=== PATIENT | female | born 1950 | race Caucasian/White ===

== ENCOUNTER 2021-01-28 05:54 | Emergency (ER) | payer MEDICARE, SELFPAY ==
[2021-01-28] VITALS (10 sets, daily range): BP systolic 122–168; BP diastolic 52–98; PULSE 63–80; RESP 12–24; TEMP 36.8; O2SAT 100
--- NOTE | ~2021-01-28 | CT_ITS ---
EXAMINATION: CT abdomen pelvis w con INDICATION: Abdominal pain and nausea TECHNIQUE: Computed tomographic images of the abdomen and pelvis were obtained after the administrati on of 100 cc of Omnipaque 350 intravenous contrast. The dose-length product (DLP) was 1383.15 mGy-cm. Automated exposure control and iterative reconstruction technique were employed. COMPARISON: 06/27/2018 FINDINGS: Minimal dependent atelectasis is present in the lung bases. The heart size is normal. The g allbladder is surgically absent. There is a small amount of pneumobilia in the left hepatic lobe. The liver is otherwise unremarkable. The spleen and adrenal glands are normal. There is fatty atrophy of the body and tail of the pancreas. There is mild atrophy of the kidneys. No pathologically enlarged abdominal or pelvic lymph nodes are identified. There is mildly dilated small bowel in the left upper quadrant without focal transition point. No free intraperitoneal gas is identified. A fat-containing umbilical hernia is noted. There is severe lumbar spondylosis at L5-S1. IMPRESSION: 1. Mildly dilated small bowel in the left upper quadrant without focal transition point, possible ile us. Reviewed, dictated and finalized at location A. [employer] IMPRESSION: 1. Mildly dilated small bowel in the left upper quadrant without focal transiti on point, possible ileus.
[2021-01-28] MEDS: ONDANSETRON INJ 4 MG/2 ML VIAL IV PUSH (07:15)
[2021-01-28] MEDS: SODIUM CHLORIDE 0.9% IV 1,000 ML 999 ML IV CONT (07:15)
[2021-01-28] MEDS: MORPHINE SULFATE (*CRX) 4 MG/ML INJ IV PUSH ×2 (07:15→08:57)
[2021-01-28 07:20] LABS: Add Urine Microscopic? YES; Appearance Urine Cloudy (Clear); Bacteria Urine Trace /hpf; Bilirubin Urine Negative (Negative); Blood Urine 1+ (Negative); Color Urine Yellow (Yellow); Glucose Urine UA Negative (Negative); Ketones Urine Trace mg/dL (Negative); Leukocyte Esterase Ur 3+ LEU/UL (Negative); Mucus Urine Rare /lpf; Nitrate Urine Negative (Negative); Protein Urine Negative (Negative); Specific Grav Ur 1.016 (1.001-1.035); Squamous Epithelial Cell Urine Many /hpf (Few); Urobilinogen Urine Negative mg/dL (<2.0); WBC Urine >75 /hpf
[2021-01-28 07:33] LABS: Basophils Absolute Auto 0.1 K/mm3 (0.0-0.1); Basophils Percent Auto 0.5 % (0.2-1.2); Eosinophils Absolute Auto 0.1 K/mm3 (0-0.3); Eosinophils Percent Auto 0.7 % (0-4.4); Hematocrit 33.5 % (37.0-47.0); Hemoglobin 10.1 g/dL (12.0-15.0); Immature Granulocyte Absolute 0.04 K/mm3 (0.00-0.031); Immature Granulocyte Percent A 0.4 % (0-0.5); Lymphocytes Absolute Auto 2.27 K/mm3 (0.9-3.2); Lymphocytes Percent Auto 20.5 % (18.3-44.2); Mean Corpuscular HGB Conc 30.1 g/dl (32-36); Mean Corpuscular Hemoglobin 22.5 pg (26-34); Mean Corpuscular Volume 74.6 fl (80-100); Mean Platelet Volume 8.7 fl (7.4-10.4); Monocytes Absolute Auto 0.9 K/mm3 (0.1-0.6); Monocytes Percent Auto 8.1 % (2.6-8.5); Neutrophils Absolute Auto 7.7 K/mm3 (1.3-6.7); Neutrophils Percent Auto 69.8 % (45.5-73.1); Platelet Count Result 395 k/mm3 (150-375); Red Blood Count 4.49 M/mm3 (4.2-5.4); Red Cell Distribution Width 16.8 % (11.5-14.5); White Blood Count 11.1 K/mm3 (4.5-10.0)
[2021-01-28 07:44] LABS: Alanine Aminotransferase 13 U/L (4-35); Albumin Level 4.3 g/dL (3.5-5.1); Alkaline Phosphatase 107 U/L (38-126); Anion Gap 8 mmol/L (8-16); Aspartate Amino Transferase 17 U/L (14-36); Bilirubin,Total 0.6 mg/dL (0.2-1.3); Blood Urea Nitrogen 24 mg/dL (7-17); Calcium 9.7 mg/dL (8.4-10.2); Carbon Dioxide 26 mmol/L (22-30); Chloride 103 mmol/L (98-107); Estimated CRCL calculation 55 ml/min; Estimated Glomerular Filt Rate > 60; Glucose 114 mg/dL (65-110); Lipase 95 U/L (23-300); Potassium 4.4 mmol/L (3.4-5.0); Sodium 137 mmol/L (137-145)
--- NOTE | 2021-01-28 08:49 | ED.NAVMDI ---
HPI - Nausea/Vomiting/Diarrhea General Chief complaint: Nausea/Vomiting/Diarrhea Stated complaint: n/v Time Seen by Provider: 01/28/21 06:52 Source: patient History of Present Illness HPI Narrative: Patient presents with nausea vomiting diarrhea and diffuse abdominal pain. Patient for symptoms started yesterday got progressively worse today so she came to the ER for evaluation. She denies any blood bowel melena in her emesis or stool. She reports diffuse abdominal pain that is achy, constant, no radiation, no clear aggravating or alleviating symptoms. Her primary concern as she has not been able to take her home pain medications or keep them down so her chronic pain is acting up. She denies fever or known sick contacts Related Data Home Medications Medication Instructions Recorded Confirmed bupropion HCl 300 mg 24 hr tablet, 300 mg PO QAM 01/03/19 12/13/20 extended release oxycodone-acetaminophen 10 mg-325 1 tablet PO Q6H PRN 05/07/19 12/13/20 mg tablet Allergies Allergy/AdvReac Type Severity Reaction Status Date / Time clarithromycin Allergy Mild upset Verified 01/28/21 05:59 stomach ibuprofen Allergy Mild stomach Verified 01/28/21 05:59 upset NSAIDS (Non-Steroidal Allergy Mild stomach Verified 01/28/21 05:59 Anti-Inflamma upset tramadol Allergy Mild stomach Verified 01/28/21 05:59 upset Review of Systems Review of Systems: CONSTITUTIONAL: Denies fever, chills, or sweats. EYES: Denies visual changes, redness, or discharge. ENT: Denies rhinorrhea, congestion, sore throat, or otalgia. CARDIOVASCULAR: Denies chest pain, palpitations, or edema. RESPIRATORY: Denies cough or dyspnea. GASTROINTESTINAL: Reports abdominal pain, nausea, vomiting, diarrhea GENITOURINARY: Denies dysuria or hematuria. SKIN: Denies rash or itching. MUSCULOSKELETAL: Denies back pain, joint pain, or myalgia. NEUROLOGIC: Denies headache, numbness, dizziness, or weakness. PSYCHIATRIC: Denies anxiety or depression. All systems reviewed & are unremarkable except as noted in HPI and below PMFSH Past Medical History Medical History Asthma Family History Family History Father Family history of malignant neoplasm Patient's father is Mother Family history of malignant neoplasm Patient's mother is Social History Social History Smoking status: Never smoker Second hand tobacco smoke exposure: No Alcohol intake: never Exam Narrative: GENERAL: Well-appearing, well-nourished, and in no acute distress. HEAD: Normocephalic, atraumatic. EYES: PERRLA and EOMI. ENT: Nares clear, no rhinorrhea or epistaxis. Mucous membranes moist. NECK: Supple. No masses. No JVD CHEST: Clear to auscultation. No respiratory distress. No wheezes rales or rhonchi HEART: Regular rate and rhythm. No murmur heard. Normal peripheral pulses. ABDOMEN: Mild tenderness in the upper abdomen soft, nondistended, normal active bowel sounds. EXTREMITIES: Normal range of motion. No edema. SKIN: Warm, dry, no rash. NEURO: No focal deficits. Alert and oriented x3. PSYCH: Normal mood and affect. Course Reevaluation(s) Reevaluation #1: Patient reports feeling improved results and work-up reviewed with patient. Patient feels she can manage her at home. With repeat abdominal exam reassuring trial of outpatient therapies as appropriate. Date: 01/28/21 Time: 09:01 Vital Signs Vital signs: Vital Signs Temperature 36.8 C 01/28/21 05:53 Pulse Rate 80 01/28/21 05:53 Respiratory Rate 18 01/28/21 05:53 Blood Pressure 150/75 H 01/28/21 05:53 Pulse Oximetry 100 01/28/21 05:53 Temperature 36.8 C 01/28/21 05:53 Pulse Rate 71 01/28/21 09:30 Respiratory Rate 16 01/28/21 09:30 Blood Pressure 149/76 H 01/28/21 09:30 Pulse Oximetry
--- NOTE | 2021-01-28 15:04 | ED.NAVMDI ---
HPI - Nausea/Vomiting/Diarrhea General Chief complaint: Nausea/Vomiting/Diarrhea Stated complaint: n/v Time Seen by Provider: 01/28/21 06:52 Source: patient History of Present Illness HPI Narrative: Patient presents with nausea vomiting diarrhea and diffuse abdominal pain. Related Data Home Medications Medication Instructions Recorded Confirmed bupropion HCl 300 mg 24 hr tablet, 300 mg PO QAM 01/03/19 12/13/20 extended release oxycodone-acetaminophen 10 mg-325 1 tablet PO Q6H PRN 05/07/19 12/13/20 mg tablet Allergies Allergy/AdvReac Type Severity Reaction Status Date / Time clarithromycin Allergy Mild upset Verified 01/28/21 05:59 stomach ibuprofen Allergy Mild stomach Verified 01/28/21 05:59 upset NSAIDS (Non-Steroidal Allergy Mild stomach Verified 01/28/21 05:59 Anti-Inflamma upset tramadol Allergy Mild stomach Verified 01/28/21 05:59 upset PMFSH Past Medical History Medical History (Updated 01/28/21 @ 09:03 by Daniel Cramer MD) Asthma Family History Family History Father Family history of malignant neoplasm Patient's father is Mother Family history of malignant neoplasm Patient's mother is Social History Social History Smoking status: Never smoker Second hand tobacco smoke exposure: No Alcohol intake: never Course Vital Signs Vital signs: Vital Signs Temperature 36.8 C 01/28/21 05:53 Pulse Rate 80 01/28/21 05:53 Respiratory Rate 18 01/28/21 05:53 Blood Pressure 150/75 H 01/28/21 05:53 Pulse Oximetry 100 01/28/21 05:53 Temperature 36.8 C 01/28/21 05:53 Pulse Rate 71 01/28/21 09:30 Respiratory Rate 16 01/28/21 09:30 Blood Pressure 149/76 H 01/28/21 09:30 Pulse Oximetry 100 01/28/21 09:30 MDM - Nausea/Vomiting/Diarrhea Lab Data Result diagrams: 01/28/21 07:27 01/28/21 07:27 Labs: Lab Results 01/28/21 01/28/21 01/28/21 Range/Units 06:58 07:27 07:27 WBC 11.1 H (4.5-10.0) K/mm3 RBC 4.49 (4.2-5.4) M/mm3 Hgb 10.1 L (12.0-15.0) g/dL Hct 33.5 L (37.0-47.0) % MCV 74.6 L (80-100) fl MCH 22.5 L (26-34) pg MCHC 30.1 L (32-36) g/dl RDW 16.8 H (11.5-14.5) % Plt Count 395 H (150-375) k/mm3 MPV 8.7 (7.4-10.4) fl Immature Gran % (Auto) 0.4 (0-0.5) % Neut % (Auto) 69.8 (45.5-73.1) % Lymph % (Auto) 20.5 (18.3-44.2) % Nye % (Auto) 8.1 (2.6-8.5) % Eos % (Auto) 0.7 (0-4.4) % Baso % (Auto) 0.5 (0.2-1.2) % Lymph # (Auto) 2.27 (0.9-3.2) K/mm3 [place]ye # (Auto) 0.9 H (0.1-0.6) K/mm3 Eos # (Auto) 0.1 (0-0.3) K/mm3 Baso # (Auto) 0.1 (0.0-0.1) K/mm3 Abs Immat Gran (auto) 0.04 H (0.00-0.031) K/mm3 Absolute Neuts (auto) 7.7 H (1.3-6.7) K/mm3 Absolute Nucleated RBC 0.0 (0.0-0.012) K/mm3 Nucleated RBC % 0.0 (0.0-0.2) % Sodium 137 (137-145) mmol/L Potassium 4.4 (3.4-5.0) mmol/L Chloride 103 (98-107) mmol/L Carbon Dioxide 26 (22-30) mmol/L Anion Gap 8 (8-16) mmol/L BUN 24 H (7-17) mg/dL Creatinine 0.90 (0.7-1.0) mg/dL Estim Creat Clear Calc 55 ml/min Estimated GFR > 60 (59 - ) Glucose 114 H (65-110) mg/dL Calcium 9.7 (8.4-10.2) mg/dL Total Bilirubin 0.6 (0.2-1.3) mg/dL AST 17 (14-36) U/L ALT 13 (4-35) U/L Alkaline Phosphatase 107 (38-126) U/L Total Protein 7.0 (6.3-8.2) g/dL Albumin 4.3 (3.5-5.1) g/dL Lipase 95 (23-300) U/L Urine Color Yellow (Yellow) Urine Appearance Cloudy H (Clear) Urine pH 6.0 (5.0-9.0) Ur Specific [place] 1.016 (1.001-1.035) Urine Protein Negative (Negative) mg/dL Urine Glucose (UA) Negative (Negative) mg/dL Urine Ketones Trace (Negative) mg/dL Ur Blood (Man) 1+ H (Negative) Urine Nitrate
== END 2021-01-28 09:30 | disposition home or self-care (01) ==
PROVIDERS: General Practice; Emergency Provider Emergency Medicine; PCP Physician Assistant
DX: N30.01 Acute cystitis with hematuria (principal); R10.84 Generalized abdominal pain; J45.909 Unspecified asthma, uncomplicated; R93.5 Abnormal findings on diagnostic imaging of other abdominal regions, including retroperitoneum
CPT/HCPCS: 36415; 74177; 80053; 81001; 83690; 85025; 87077; 87086; 87186; 96361; 96365; 96375; 96376; 99284; J0696; J2270; J2405; J7030; Q9967

== ENCOUNTER 2021-01-29 00:49 | Observation (INO) | payer MEDICARE, SELFPAY ==
[2021-01-29] VITALS (13 sets, daily range): BP systolic 108–169; BP diastolic 54–91; PULSE 62–94; RESP 14–20; TEMP 36.3–37.2; O2SAT 95–100; BMI 37.8
--- NOTE | ~2021-01-29 | XR_ITS ---
EXAMINATION: XR abdomen obstructive series DATE: 01/29/2021 10:35 INDICATION: Ileus TECHNIQUE: Upright and supine views of the abdomen were obtained. COMPARISON: CT from yesterday FINDINGS: There is mild gaseous distention of the stomach. Previously described dilated small bowel i n the left upper quadrant does not persist. No free intraperitoneal gas is identified. Cholecystectom y clips are noted. The visualized lung bases are clear. Contrast from yesterday's CT examination is n oted within the urinary bladder. There is mild osteoarthritis of the hips. IMPRESSION: 1. No persistent small bowel dilatation. Reviewed, dictated and finalized at location A. [employer]
[2021-01-29 01:22] LABS: Basophils Absolute Auto 0.1 K/mm3 (0.0-0.1); Basophils Percent Auto 0.4 % (0.2-1.2); Eosinophils Absolute Auto 0.1 K/mm3 (0-0.3); Eosinophils Percent Auto 0.9 % (0-4.4); Hematocrit 31.7 % (37.0-47.0); Hemoglobin 9.8 g/dL (12.0-15.0); Immature Granulocyte Absolute 0.05 K/mm3 (0.00-0.031); Immature Granulocyte Percent A 0.4 % (0-0.5); Lymphocytes Absolute Auto 2.39 K/mm3 (0.9-3.2); Mean Corpuscular HGB Conc 30.9 g/dl (32-36); Mean Corpuscular Hemoglobin 23.1 pg (26-34); Mean Corpuscular Volume 74.6 fl (80-100); Mean Platelet Volume 8.6 fl (7.4-10.4); Monocytes Absolute Auto 1.1 K/mm3 (0.1-0.6); Monocytes Percent Auto 9.8 % (2.6-8.5); Neutrophils Absolute Auto 7.7 K/mm3 (1.3-6.7); Neutrophils Percent Auto 67.5 % (45.5-73.1); Platelet Count Result 378 k/mm3 (150-375); Red Blood Count 4.25 M/mm3 (4.2-5.4); Red Cell Distribution Width 16.7 % (11.5-14.5); White Blood Count 11.4 K/mm3 (4.5-10.0)
[2021-01-29 01:34] LABS: Alanine Aminotransferase 13 U/L (4-35); Alkaline Phosphatase 86 U/L (38-126); Anion Gap 4 mmol/L (8-16); Aspartate Amino Transferase 20 U/L (14-36); Bilirubin,Total 0.5 mg/dL (0.2-1.3); Blood Urea Nitrogen 21 mg/dL (7-17); Calcium 9.4 mg/dL (8.4-10.2); Carbon Dioxide 25 mmol/L (22-30); Chloride 101 mmol/L (98-107); Estimated CRCL calculation 63 ml/min; Estimated Glomerular Filt Rate > 60; Glucose 114 mg/dL (65-110); Lipase 111 U/L (23-300); Potassium 4.5 mmol/L (3.4-5.0); Sodium 130 mmol/L (137-145)
[2021-01-29] MEDS: SODIUM CHLORIDE 0.9% IV 1,000 ML 999 ML IV CONT (01:59)
[2021-01-29] MEDS: HYDROmorphone HCL INJ (*CRX) 1 MG/ML SYR IV PUSH ×5 (02:00→20:14)
--- NOTE | 2021-01-29 02:02 | ED.NAVMDI ---
HPI - Nausea/Vomiting/Diarrhea General Chief complaint: Nausea/Vomiting/Diarrhea Stated complaint: n/v/d, abd cramping x 2 days here last night Time Seen by Provider: 01/29/21 00:56 Source: patient, RN notes reviewed and old records reviewed Mode of arrival: EMS Limitations: no limitations History of Present Illness HPI Narrative: This is a 70 year old female with history chronic pain syndrome, hypertension, hyperlipidemia who present for evaluation of nausea, vomiting and diarrhea. She states her symptoms started 2 days ago. She was evaluated in [place] ER about 16 hour ago with labs and CT abdomen pelvis. She was discharged with antibiotics for UTI and zofran prescription. She was only able to get 1 dose of zofran due to financial issues and she took that in the afternoon. She last had an episode of emesis around 10 pm and she also had dose of diarrhea. She reports bilious emesis and nonbloody watery diarrhea. She is also complaining of diffuse abdominal pain. She takes high dose of narcotics chronically and she has been unable to keep medications down in 2 days. Related Data Home Medications Medication Instructions Recorded Confirmed bupropion HCl 300 mg 24 hr tablet, 300 mg PO QAM 01/03/19 01/29/21 extended release oxycodone-acetaminophen 10 mg-325 1 tablet PO Q6H PRN 05/07/19 01/29/21 mg tablet Allergies Allergy/AdvReac Type Severity Reaction Status Date / Time clarithromycin Allergy Mild upset Verified 01/29/21 01:03 stomach ibuprofen Allergy Mild stomach Verified 01/29/21 01:03 upset NSAIDS (Non-Steroidal Allergy Mild stomach Verified 01/29/21 01:03 Anti-Inflamma upset tramadol Allergy Mild stomach Verified 01/29/21 01:03 upset Review of Systems Review of Systems: All systems reviewed & are unremarkable except as noted in HPI and below PMFSH Past Medical History Medical History (Updated 01/29/21 @ 08:00 by Kary Seo MD) Asthma Chronic pain Hyperlipidemia Hypertension Surgical History Surgical History History of cholecystectomy History of tonsillectomy Family History Family History Father Family history of malignant neoplasm Patient's father is Mother Family history of malignant neoplasm Patient's mother is Social History Social History Smoking status: Never smoker Second hand tobacco smoke exposure: No Alcohol intake: never Substance use: never Spiritual care concerns: No Exam Const: General: no acute distress Orientation/consciousness: patient oriented x3 Eyes: EOM: EOMs intact bilaterally Resp: Effort & Inspection: normal respiratory effort and no retractions Auscultation: clear to auscultation bilaterally Cardio: Rate: regular rate Rhythm: regular rhythm Heart sounds: no murmurs GI: GI Palp: Yes Soft to palpation, No Tenderness to palpation present (GI) and No Guarding due to palpation present (GI) Auscultation: normal bowel sounds Skin: General skin exam: normal color Rashes: no rashes Neuro: General: patient oriented x3, moves all extremities and CN's II-XI intact bilaterally Psych: Mental Status: mental status grossly normal Affect: normal affect Course Reevaluation(s) Reevaluation #1: Patient was given zofran, dilaudid and IVF. She is still continuing to have nausea and pain. PAtient's labs are stable and CT from yesterday showed only possible ileus. I discussed with patient that she will be admitted for observation due to intractable nausea and pain. Date: 01/29/21 Time: 03:30 Consultations Consultation #1: I Discussed case with Dr. Gonzalez. She accepts patient and thinks patient's symptoms likely due to UTI. She received rocephin 8 am yesterday so I will order for this morning. Date: 01/29/21 Time: 04:00 Vi
[2021-01-29] MEDS: PROMETHAZINE HCL 25 MG/ML AMPUL 12.5 MG IV PUSH (02:48)
--- NOTE | 2021-01-29 03:39 | PC.NURSE ---
Pt reports improvement in N/V since medication
--- NOTE | 2021-01-29 03:59 | PC.NURSE ---
Pt requesting pain medication. EDP notified.
--- NOTE | 2021-01-29 05:00 | PC.NURSE ---
This RN entered room to give ordered pain medication. Pt states that if she could stay home and take Tylenol, she would have. Pt states she doesn't understand why this RN cannot not give her something stronger. Reports we are discriminating against her because she was just here yesterday. This RN educated pt on potential adverse effects of narcotic pain medications and reasons doses are limited to every few hours. This RN also educated pt on the effectiveness of IV Tylenol in treating pain. Pt continues to express dissatisfaction, but states she will try the IV Tylenol.
--- NOTE | 2021-01-29 05:19 | PC.NURSE ---
Attempted to give report to 3rd Med/Surg at this time. Was informed that receiving RN was in pt room and will call back when available.
--- NOTE | 2021-01-29 05:24 | PM.IMHP ---
H&P: HPI History of Present Illness Date/Time: 01/29/21 05:24 Chief Complaint: Nausea and vomiting Narrative: This is a 70-year-old female with past medical history significant for asthma, chronic pain, asthma, dyslipidemia, hypertension, morbid obesity. Patient presents to the emergency room due to nausea, vomiting and diarrhea. She had been to the emergency room the day before and workup was significant for urinary tract infection she was discharged home with antibiotics however patient after taking her antibiotic had nausea and vomiting intractable with diarrhea as well as abdominal pain and decided to come back to the emergency room. Patient has been having chills ,fevers, she denies any dysuria, she denies any hematuria, denies any shortness of breath, cough or sputum production, no leg swelling, no PND, orthopnea, no syncope or near syncope. CT of abdomen and pelvis was significant for dilated bowel loops possible ileus. Decision has been made to admit the patient for further assessment evaluation and treatment. Review of Systems Review of Systems: Nausea, vomiting,abdominal pain, diarrhea. Constitutional: Constitutional: Reports chills, Reports fatigue, Reports fever(s), Reports malaise, Reports poor appetite and Reports weakness Eyes: Eyes: Denies change in vision ENT: Denies dysphagia, Denies nasal congestion, Denies nasal discharge, Denies nasal obstruction and Denies odynophagia Cardiovascular: Cardiovascular: Denies edema, Denies irregular heart rhythm, Denies claudication, Denies lightheadedness, Denies radiating jaw, neck or arm pain, Denies palpitations, Denies dyspnea, Denies dyspnea on exertion and Denies orthopnea Respiratory: Respiratory: Denies cough and Denies dyspnea Gastrointestinal: Gastrointestinal: Reports abdominal pain, Denies dyspepsia, Denies heartburn, Reports diarrhea, Reports nausea and Reports vomiting Genitourinary: Genitourinary: Denies dysuria and Denies flank pain Musculoskeletal: Musculoskeletal: Reports back pain, Denies arthralgias and Denies joint swelling Integumentary/Breasts: Skin/Breast: Denies rash Neurologic: Denies focal weakness and Denies Sensory deficit (Neuro) Psychiatric: Psychiatric: Reports no additional psychiatric complaints and Reports as per HPI Endocrine: Endocrine: Reports no additional endocrine complaints and Reports as per HPI Hematologic/Lymphatic: Hematologic/Lymphatic: Reports no additional hematologic/lymphatic complaints and Reports as per HPI Allergic/Immunologic: Allergic/Immunologic: Reports no additional allergic/immunologic complaints and Reports as per [facility] Past Medical History Medical History (Updated 01/29/21 @ 05:39 by Garcia Gonzalez MD) Asthma Chronic pain Hyperlipidemia Hypertension Surgical History Surgical History History of cholecystectomy History of tonsillectomy Family History Family History Father Family history of malignant neoplasm Patient's father is Mother Family history of malignant neoplasm Patient's mother is Social History Social History Smoking status: Never smoker Second hand tobacco smoke exposure: No Alcohol intake: never Meds Home Medications and Allergies Home Medications Medication Instructions Recorded Confirmed Type bupropion HCl 300 mg 24 hr tablet, 300 mg PO QAM 01/03/19 12/13/20 History extended release oxycodone-acetaminophen 10 mg-325 1 tablet PO Q6H PRN 05/07/19 12/13/20 History mg tablet hydroxyzine HCl 50 mg tablet See Rx Instructions .ROUTE 02/24/20 12/13/20 Rx .COMPLEX #180 tablet pramipexole 1 mg tablet See Rx Instructions .ROUTE 08/04/20 12/13/20 Rx .COMPLEX #270 tablet pantoprazole 40 mg tablet,delayed 40 mg PO QAM #90 tablet 08/09/20 12/13/20 Rx releas
[2021-01-29] MEDS: SODIUM CHLORIDE 0.9% IV 1,000 ML 125 ML IV CONT ×2 (06:11→18:36)
[2021-01-29] MEDS: ONDANSETRON INJ 4 MG/2 ML VIAL IV PUSH ×4 (06:16→20:14)
--- NOTE | 2021-01-29 06:27 | ADMGEN ---
This patient, Claudette Gomez, was admitted to [facility] Surg Room 317-01. Patient/family oriented to hospital policies and general routines including ID bracelet, bed and alarms, visiting hours, pain management, procedures, bathroom and other care routines, personal items, smoking policy, room service/diet, and visiting hours. Information on how to activate the Rapid Response Team has been discussed. Patient/Family are encouraged to report perceived risks to care and to ask questions if they do not understand what they are told or what they should do.
--- NOTE | 2021-01-29 08:27 | PM.IMPN ---
Progress Note: A&P Assessment and Plan (1) Ileus: Code(s): K56.7 - Ileus, unspecified Status: Acute Assessment and Plan: Noted on CT yesterday -patient has had improvement and has not had any vomiting. She has been passing gas but has not had a bowel movement (previously had diarrhea before admission) -No sick contacts -will obtain an obstructive series x-ray this morning and depending on the x-ray may consider starting a diet -patient is still in 7/10 pain but has no signs of acute abdomen (2) Urinary tract infection: Code(s): N39.0 - Urinary tract infection, site not specified Status: Acute Assessment and Plan: UA suspicious for UTI -continue ceftriaxone and await culture results (3) Intractable nausea and vomiting: Code(s): R11.2 - Nausea with vomiting, unspecified Status: Acute Assessment and Plan: Resolved since being here -secondary to ileus (4) Morbid obesity with BMI of 40.0-44.9, adult: Code(s): E66.01 - Morbid (severe) obesity due to excess calories; Z68.41 - Body mass index [BMI] 40.0-44.9, adult Status: Acute Assessment and Plan: Lifestyle and diet modifications (5) Chronic knee pain: Code(s): M25.569 - Pain in unspecified knee; G89.29 - Other chronic pain Status: Acute Assessment and Plan: She takes oxycodone for this at home -order PT and OT (6) Asthma: Qualifiers: Asthma severity: mild Asthma persistence: intermittent Asthma complication type: uncomplicated Qualified Code(s): J45.20 - Mild intermittent asthma, uncomplicated Code(s): J45.909 - Unspecified asthma, uncomplicated Status: Acute Assessment and Plan: Chronic and stable -no wheezing on exam -continue p.r.n. albuterol and daily Advair (7) Hyponatremia: Code(s): E87.1 - Hypo-osmolality and hyponatremia Status: Acute Assessment and Plan: Down to 130 today, likely due to pain and IV fluids -patient states she has had a history of this in the past. She was 137 on admission -in the past looks like she ranges from 126-135 -will slow fluids while the patient is NPO and monitor with daily labs -home hydrochlorothiazide has been held (8) Hypertension: Qualifiers: Hypertension type: essential hypertension Qualified Code(s): I10 - Essential (primary) hypertension Code(s): I10 - Essential (primary) hypertension Status: Acute Assessment and Plan: Last blood pressure 134/67 -continue IV hydralazine for systolic greater than 170 while NPO -plan to restart home medications as soon as she can tolerate a diet Time Spent With Patient Time with patient: 25 - 35 minutes Subjective Date/time seen: 01/29/21 08:27 Interval history: Pt is a 70-year-old female here for ileus and UTI. Patient was seen today and states she feels better. She continues to have pain that is mostly in her left lower quadrant but has not had any vomiting or diarrhea since admission. She has not eaten anything yet and is passing gas. She says she has a history of cholecystectomy in 2002 and a but no other abdominal surgeries. She thinks she had this in her 30s at some point but isn't sure. She has not been around anybody who has been sick. She has not slept for the past 2 days because she was throwing up but is feeling better and did sleep a little bit this morning. She is overall feeling better. No chest pain or shortness of breath. She rates her pain a 7/10 at this time but would like to try a diet. She states she takes oxycodone routinely at home for knee and back pain. No dysuria. Review of Systems Review of Systems: All systems reviewed & are unremarkable except as noted in HPI and below Exam Narrative: General: Overweight patient resting comfortably in bed in no acute distress HEENT: normocephalic Neck: supple Neuro: Alert and oriented x4
[2021-01-29] MEDS: PANTOPRAZOLE SODIUM IV 40 MG VIAL IV PUSH (08:37)
[2021-01-29] MEDS: ENOXAPARIN 40 MG/0.4 ML SYRINGE SUB-Q (08:38)
--- NOTE | 2021-01-29 22:47 | PC.NURSE ---
Patient is giving this nurse an extremely hard time this evening. Patient was medicated with Dilaudid and stated immediately after the medication was administered that she did not feel relief like she did the other times the medication was given. Patient then asked to speak with the charge nurse stating this nurse did not administer her pain medication. Patient then requested tylenol and this nurse went in and explained that medication was not due for 2 more hours. Patient stated this was not correct because she always got pain medication in between her doses. Patient stated to the charge nurse that she needed medication to help her sleep and this nurse called and got an order for one time dose of Ambien. Care will be transferred to charge nurse Татьяна.
[2021-01-29] MEDS: ZOLPIDEM TARTRATE (*CRX) 5 MG TABLET PO (23:31)
[2021-01-30] MEDS: ONDANSETRON INJ 4 MG/2 ML VIAL IV PUSH ×3 (00:08→08:33)
[2021-01-30] MEDS: HYDROmorphone HCL INJ (*CRX) 1 MG/ML SYR IV PUSH ×3 (00:09→08:33)
[2021-01-30] MEDS: SODIUM CHLORIDE 0.9% IV 1,000 ML 125 ML IV CONT (02:06)
[2021-01-30 05:26] VITALS: BP 143/53; PULSE 61; RESP 18; TEMP 36.4; O2SAT 92
[2021-01-30 06:46] LABS: Basophils Absolute Auto 0.1 K/mm3 (0.0-0.1); Basophils Percent Auto 0.9 % (0.2-1.2); Eosinophils Absolute Auto 0.4 K/mm3 (0-0.3); Eosinophils Percent Auto 4.5 % (0-4.4); Hematocrit 31.1 % (37.0-47.0); Hemoglobin 9.3 g/dL (12.0-15.0); Immature Granulocyte Absolute 0.04 K/mm3 (0.00-0.031); Immature Granulocyte Percent A 0.4 % (0-0.5); Lymphocytes Absolute Auto 2.49 K/mm3 (0.9-3.2); Lymphocytes Percent Auto 27.5 % (18.3-44.2); Mean Corpuscular HGB Conc 29.9 g/dl (32-36); Mean Corpuscular Hemoglobin 22.4 pg (26-34); Mean Corpuscular Volume 74.8 fl (80-100); Mean Platelet Volume 8.9 fl (7.4-10.4); Monocytes Absolute Auto 0.9 K/mm3 (0.1-0.6); Monocytes Percent Auto 9.9 % (2.6-8.5); Neutrophils Absolute Auto 5.1 K/mm3 (1.3-6.7); Neutrophils Percent Auto 56.8 % (45.5-73.1); Platelet Count Result 362 k/mm3 (150-375); Red Blood Count 4.16 M/mm3 (4.2-5.4); Red Cell Distribution Width 16.5 % (11.5-14.5); White Blood Count 9.1 K/mm3 (4.5-10.0)
[2021-01-30 06:58] LABS: Alanine Aminotransferase 11 U/L (4-35); Albumin Level 3.6 g/dL (3.5-5.1); Alkaline Phosphatase 74 U/L (38-126); Anion Gap 5 mmol/L (8-16); Aspartate Amino Transferase 14 U/L (14-36); Bilirubin,Total 0.3 mg/dL (0.2-1.3); Blood Urea Nitrogen 16 mg/dL (7-17); Carbon Dioxide 23 mmol/L (22-30); Chloride 104 mmol/L (98-107); Estimated CRCL calculation 64 ml/min; Estimated Glomerular Filt Rate > 60; Glucose 98 mg/dL (65-110); Magnesium 1.7 mg/dL (1.6-2.3); Sodium 132 mmol/L (137-145)
[2021-01-30 08:17] LABS: Ovalocytes 1+ (NORMAL); Platelet Estimate Adequate (Adequate); Poikilocytosis 1+ (NORMAL)
[2021-01-30] MEDS: FLUTICASONE/SALMETEROL 115-21 MCG INHALER 1 PUFF 2 PUFF INHALATION (09:08)
[2021-01-30 09:09] VITALS: O2SAT 98
[2021-01-30] MEDS: ENOXAPARIN 40 MG/0.4 ML SYRINGE SUB-Q (09:57)
[2021-01-30] MEDS: buPROPion HCL XL (24 HR) 150 MG TABCR 300 MG PO (09:57)
[2021-01-30] MEDS: hydroCHLOROthiazide 12.5 MG CAPSULE PO (09:58)
[2021-01-30] MEDS: PANTOPRAZOLE SODIUM IV 40 MG VIAL IV PUSH (09:58)
[2021-01-30] MEDS: LOSARTAN POTASSIUM 100 MG TABLET PO (09:58)
[2021-01-30] MEDS: oxyCODONE HCL (*CRX) 5 MG TAB IR PO (12:15)
[2021-01-30] MEDS: oxyCODONE/ACETAMINOPHEN (*CRX) 5-325 MG TABLET 1 TABLET PO (12:17)
[2021-01-30] MEDS: CEPHALEXIN 500 MG CAPSULE PO (12:36)
[2021-01-30] MEDS: SACCHAROMYCES BOULARDII 250 MG CAPSULE PO (12:37)
[2021-01-30 14:00] VITALS: BP 113/55; PULSE 74; RESP 20; TEMP 37.2; O2SAT 100
--- NOTE | 2021-01-30 14:14 | PM.DS ---
DS: Admitting Diagnosis Discharge Date 01/30/21 Admitting Diagnosis ileus and UTI DS: Discharge Diagnosis Discharge Diagnosis (1) Ileus: Code(s): K56.7 - Ileus, unspecified Status: Acute Assessment and Plan: Noted on CT 01/28/21 -patient has had improvement and has not had any vomiting and has had BMs -she tolerated her diet and stable for discharge -No sick contacts (2) Urinary tract infection: Code(s): N39.0 - Urinary tract infection, site not specified Status: Acute Assessment and Plan: confirmed UTI -patient states she still has her Keflex at home that was given by the ER and she is going to finish that (3) Intractable nausea and vomiting: Code(s): R11.2 - Nausea with vomiting, unspecified Status: Acute Assessment and Plan: Resolved since being here -secondary to ileus (4) Morbid obesity with BMI of 40.0-44.9, adult: Code(s): E66.01 - Morbid (severe) obesity due to excess calories; Z68.41 - Body mass index [BMI] 40.0-44.9, adult Status: Acute Assessment and Plan: Lifestyle and diet modifications (5) Chronic knee pain: Code(s): M25.569 - Pain in unspecified knee; G89.29 - Other chronic pain Status: Acute Assessment and Plan: She takes oxycodone and morphine for this at home (6) Asthma: Qualifiers: Asthma severity: mild Asthma persistence: intermittent Asthma complication type: uncomplicated Qualified Code(s): J45.20 - Mild intermittent asthma, uncomplicated Code(s): J45.909 - Unspecified asthma, uncomplicated Status: Acute Assessment and Plan: Chronic and stable -no wheezing on exam -continue p.r.n. albuterol and daily Advair (7) Hyponatremia: Code(s): E87.1 - Hypo-osmolality and hyponatremia Status: Acute Assessment and Plan: Improved to 132 today, likely due to IV fluids and pain. -patient states she has had a history of this in the past. She was 137 on admission -in the past looks like she ranges from 126-135. Follow-up with primary care physician for routine monitoring. (8) Hypertension: Qualifiers: Hypertension type: essential hypertension Qualified Code(s): I10 - Essential (primary) hypertension Code(s): I10 - Essential (primary) hypertension Status: Acute Assessment and Plan: Last blood pressure 113/55. Continue home regimen DS: Summary Hospital Course Hospital Course: Date of service 01/30/2021 Patient is a 70-year-old female who presented emergency room for nausea, vomiting and diarrhea. She had previously been to the ER and diagnosed with a UTI and went home. She was unable to keep down her antibiotics because she continued to throw up so she came back to emergency room. Vitals in the ER were temperature 98.9?, pulse 84, respiratory rate 20, blood pressure 108/57, pulse ox 100 on room air. Initial white blood cell count 11.4, hemoglobin 9.8, hematocrit 31.7, platelets 378. UA suspicious for UTI. Abdominal pelvis CT showed mildly dilated small bowel without focal transition point, possible ileus. Since patient was unable to take her home chronic pain medications and antibiotics, she was admitted to the hospitalist service and observed. She was given IV fluids and IV pain medication and improved on this regimen. We advanced her diet as tolerated and she was tolerating a regular diet at discharge. She still had complaints of chronic pain but her abdominal pain had improved. Her urine culture grew E coli and she still has antibiotics from previously and is going to finish those. She was feeling much better day of discharge and ready to go. She was educated about the worrisome signs and symptoms come back to emergency room for and was discharged in stable condition. She is to follow up with her primary care physician 1 week after this stay. Status at Discharge Overall status at d
== END 2021-01-30 16:00 | disposition home or self-care (01) ==
LOC: ANHED 01:01 → ANH3MEDSUR 05:01
PROVIDERS: Admitting Provider Internal Medicine; Emergency Provider General Practice; PCP Physician Assistant; Visit Provider Internal Medicine
DX: K56.7 Ileus, unspecified (principal); N39.0 Urinary tract infection, site not specified; B96.20 Unspecified Escherichia coli [E. coli] as the cause of diseases classified elsewhere; E87.1 Hypo-osmolality and hyponatremia; E66.01 Morbid (severe) obesity due to excess calories; E78.5 Hyperlipidemia, unspecified; I10 Essential (primary) hypertension; J45.20 Mild intermittent asthma, uncomplicated; Z68.37 Body mass index [BMI] 37.0-37.9, adult
CPT/HCPCS: 36415; 74019; 80053; 83690; 83735; 85025; 94640; 96361; 96365; 96367; 96372; 96375; 96376; 97161; 97165; 99285; A9270; C9113; G0378; J0131; J0696; J1170; J1650; J2405; J2550; J7030

== ENCOUNTER 2021-02-25 07:50 | Emergency (ER) | payer MEDICARE, SELFPAY ==
--- NOTE | ~2021-02-25 | CT_ITS ---
EXAMINATION: CT abdomen pelvis w con DATE: 02/25/2021 09:29 INDICATION: Abdominal pain TECHNIQUE: Computed tomography (CT) of the abdomen and pelvis was performed with 100 cc Omnipaque 350 intravenous contrast. Automated exposure control and iterative reconstruction technique were employe d. Exam dose: 1505.13 mGy-cm total exam DLP. COMPARISON: 01/29/2021 obstructive series 01/28/2021 CT abdomen pelvis FINDINGS: The lung bases are clear of infiltrate or consolidation. There is cardiomegaly. No pericard ial or pleural effusion. Status post cholecystectomy. There is minimal pneumobilia. No hepatic, splenic or pancreatic space-oc cupying mass lesion is evident. There is pancreatic atrophy. A pancreatic tail small calcification ma y indicate mild chronic pancreatitis. Normal morphology of the adrenal glands. No renal mass lesion or urinary tract calculus or hydroureteronephrosis. The urinary bladder and uter us and adnexal areas are unremarkable. Normal caliber of the abdominal aorta. No intraperitoneal or retroperitoneal or pelvic mass lesion or adenopathy or ascites is detected. No bowel obstruction, bowel wall thickening, pneumatosis or intraperitoneal free air. Approximately 4 x 4.8 cm fat-containing umbilical hernia. 1.5 cm osteosclerotic lesion at the root of the left acetabulum, possibly a bone island. No suspiciou s osteolytic or osteoblastic lesions are noted otherwise. Degenerative changes of the thoracic and leonor mbar spine. IMPRESSION: Status post cholecystectomy, minimal pneumobilia Reviewed, dictated and finalized at [facility]. Reviewed, dictated and finalized at [facility]. [employer] MAN
[2021-02-25 07:51] VITALS: BP 153/78; PULSE 76; RESP 16; TEMP 36.8; O2SAT 100
[2021-02-25] MEDS: SODIUM CHLORIDE 0.9% IV 1,000 ML 999 ML IV CONT (08:51)
[2021-02-25 08:56] LABS: Basophils Absolute Auto 0.1 K/mm3 (0.0-0.1); Basophils Percent Auto 0.8 % (0.2-1.2); Eosinophils Absolute Auto 0.2 K/mm3 (0-0.3); Eosinophils Percent Auto 2.9 % (0-4.4); Hematocrit 31.2 % (37.0-47.0); Hemoglobin 9.4 g/dL (12.0-15.0); Immature Granulocyte Absolute 0.04 K/mm3 (0.00-0.031); Immature Granulocyte Percent A 0.5 % (0-0.5); Lymphocytes Percent Auto 23.8 % (18.3-44.2); Mean Corpuscular HGB Conc 30.1 g/dl (32-36); Mean Corpuscular Hemoglobin 23.2 pg (26-34); Mean Corpuscular Volume 76.8 fl (80-100); Mean Platelet Volume 8.8 fl (7.4-10.4); Monocytes Absolute Auto 0.7 K/mm3 (0.1-0.6); Monocytes Percent Auto 8.4 % (2.6-8.5); Neutrophils Absolute Auto 5.1 K/mm3 (1.3-6.7); Neutrophils Percent Auto 63.6 % (45.5-73.1); Platelet Count Result 307 k/mm3 (150-375); Red Blood Count 4.06 M/mm3 (4.2-5.4); Red Cell Distribution Width 17.3 % (11.5-14.5)
[2021-02-25 08:56] LABS: Add Urine Microscopic? YES; Appearance Urine Clear (Clear); Bilirubin Urine Negative (Negative); Blood Urine 2+ (Negative); Color Urine Yellow (Yellow); Glucose Urine UA Negative (Negative); Ketones Urine Negative (Negative); Leukocyte Esterase Ur Trace LEU/UL (Negative); Mucus Urine Rare /lpf; Nitrate Urine Negative (Negative); Protein Urine Negative (Negative); Specific Grav Ur 1.015 (1.001-1.035); Squamous Epithelial Cell Urine Few /hpf (Few); Urobilinogen Urine Negative mg/dL (<2.0); WBC Urine 0-3 /hpf
--- NOTE | 2021-02-25 09:04 | ED.GENADULT ---
HPI - General Adult General Chief complaint: Nausea/Vomiting/Diarrhea Stated complaint: NAUSEA/VOMITING Time Seen by Provider: 02/25/21 08:25 Source: patient and RN notes reviewed Limitations: no limitations History of Present Illness HPI narrative: Patient presents with headache, nausea, vomiting and right abdominal pain started last night. Patient denies any fever, chills, diarrhea, constipation, urinary symptoms. Patient is vaccinated for COVID-19, did not have the booster dose yet. Patient does not smoke or drink or uses drugs, no blood thinner, no aspirin history of hypertension and cholecystectomy patient reports that usually when she gets headaches, gets nausea and vomiting. Patient reported that her headache is not worse than before, and declined CAT scan of the head at this time. Patient reported that her headache is similar to the previous ones. Related Data Home Medications Medication Instructions Recorded Confirmed bupropion HCl 300 mg 24 hr tablet, 300 mg PO QAM 01/03/19 01/29/21 extended release oxycodone-acetaminophen 10 mg-325 1 tablet PO Q6H PRN 05/07/19 01/29/21 mg tablet cephalexin 500 mg PO BID 01/30/21 01/30/21 morphine 30 mg PO BID 01/30/21 01/30/21 Allergies Allergy/AdvReac Type Severity Reaction Status Date / Time clarithromycin Allergy Mild upset Verified 01/29/21 01:03 stomach ibuprofen Allergy Mild stomach Verified 01/29/21 01:03 upset NSAIDS (Non-Steroidal Allergy Mild stomach Verified 01/29/21 01:03 Anti-Inflamma upset tramadol Allergy Mild stomach Verified 01/29/21 01:03 upset Review of Systems Review of Systems: CONSTITUTIONAL: Denies fever, chills, or sweats. EYES: Denies visual changes, redness, or discharge. ENT: Denies rhinorrhea, congestion, sore throat, or otalgia. CARDIOVASCULAR: Denies chest pain, palpitations, or edema. RESPIRATORY: Denies cough or dyspnea. GASTROINTESTINAL: Denies abdominal pain, nausea, vomiting, or diarrhea. GENITOURINARY: Denies dysuria or hematuria. SKIN: Denies rash or itching. MUSCULOSKELETAL: Denies back pain, joint pain, or myalgia. NEUROLOGIC: Denies headache, numbness, or weakness. PSYCHIATRIC: Denies anxiety or depression. [facility] Past Medical History Medical History Asthma Chronic pain Hyperlipidemia Hypertension Surgical History Surgical History History of cholecystectomy History of tonsillectomy Family History Family History Father Family history of malignant neoplasm Patient's father is Mother Family history of malignant neoplasm Patient's mother is Social History Social History Smoking status: Never smoker Second hand tobacco smoke exposure: No Alcohol intake: never Substance use: never Spiritual care concerns: No Exam Narrative: General appearance: Well-developed, well-nourished Skin: Normal color Head: Normocephalic, nontraumatic Eyes: Clear conjunctiva ENT: Oropharynx normal, ears normal, nose normal Neck: Supple, nontender Chest and respiratory: Airway patent, no respiratory distress, no accessory muscle use Heart: Regular rate/rhythm Abdomen: Soft, diffuse tenderness mainly right abdomen, no guarding or rebound,, no organomegaly, quiet bowel sounds Vascular: Normal peripheral pulses, normal capillary refill. 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
[2021-02-25 09:05] LABS: Alanine Aminotransferase 11 U/L (4-35); Albumin Level 3.8 g/dL (3.5-5.1); Alkaline Phosphatase 83 U/L (38-126); Anion Gap 5 mmol/L (8-16); Aspartate Amino Transferase 20 U/L (14-36); Bilirubin,Total 0.4 mg/dL (0.2-1.3); Blood Urea Nitrogen 13 mg/dL (7-17); Calcium 9.5 mg/dL (8.4-10.2); Carbon Dioxide 29 mmol/L (22-30); Chloride 98 mmol/L (98-107); Estimated CRCL calculation 65 ml/min; Estimated Glomerular Filt Rate > 60; Glucose 116 mg/dL (65-110); Lipase 28 U/L (23-300); Potassium 4.1 mmol/L (3.4-5.0); Sodium 132 mmol/L (137-145)
[2021-02-25] MEDS: MORPHINE SULFATE (*CRX) 4 MG/ML INJ IV PUSH ×2 (09:11→12:19)
[2021-02-25] MEDS: ONDANSETRON INJ 4 MG/2 ML VIAL IV PUSH (09:11)
[2021-02-25 10:15] VITALS: BP 152/82; PULSE 79; RESP 12; O2SAT 98
[2021-02-25 12:46] VITALS: BP 150/79; PULSE 80; RESP 14; O2SAT 99
== END 2021-02-25 12:49 | disposition home or self-care (01) ==
PROVIDERS: Emergency Provider Emergency Medicine; PCP Physician Assistant
DX: G43.909 Migraine, unspecified, not intractable, without status migrainosus (principal); R10.31 Right lower quadrant pain; I10 Essential (primary) hypertension; E78.5 Hyperlipidemia, unspecified
CPT/HCPCS: 36415; 74177; 80053; 81001; 83690; 85025; 96361; 96374; 96375; 96376; 99284; J2270; J2405; J7030; Q9967

== ENCOUNTER 2021-03-25 18:27 | Emergency (ER) | payer MEDICARE, SELFPAY ==
--- NOTE | ~2021-03-25 | XR_ITS ---
EXAMINATION: XR knee RT 3V DATE: 03/25/2021 18:49 INDICATION: Right leg pain TECHNIQUE: Three views of the right knee were obtained. COMPARISON: None. FINDINGS: Alignment is normal. No fracture or osteochondral lesion. There is tricompartmental osteoar thritis, severe in the medial compartment and moderate in the lateral and patellofemoral compartments . No joint effusion/synovitis. There is anterior soft tissue swelling of the knee. IMPRESSION: 1. 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 Reviewed, dictated and finalized at location [facility]. SETTER
--- NOTE | ~2021-03-25 | XR_ITS ---
EXAMINATION: XR hip RT 2V w AP pelvis INDICATION: Right leg pain TECHNIQUE: AP view the pelvis and two views of the right hip are obtained. COMPARISON: None available FINDINGS: Bone alignment is normal. There is no fracture. The femoral heads are well-seated in their acetabula. There is mild osteoarthritis of the hips. Sensitivity is somewhat limited by body habitus. IMPRESSION: 1. No acute osseous abnormality. Reviewed, dictated and finalized at location [facility]. 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
[2021-03-25 18:37] VITALS: BP 148/89; PULSE 80; RESP 16; TEMP 36.9; O2SAT 100
--- NOTE | 2021-03-25 19:17 | PC.NURSE ---
Patient taken to xray.
[2021-03-25] MEDS: oxyCODONE/ACETAMINOPHEN (*CRX) 5-325 MG TABLET 1 TABLET PO (19:24)
--- NOTE | 2021-03-25 19:44 | ED.LOWEXIN ---
HPI - Extremity Injury (Lower) General Chief Complaint: Extremity Injury, Lower Stated Complaint: rt knee injury Time Seen by Provider: 03/25/21 19:03 Source: RN notes reviewed History of Present Illness HPI Narrative: Patient presents emergency room from home for fall. Patient states that she was walking with a walker when her right knee gave out she states that she twisted her right knee and went down on her knee but denies hitting her head or injuring herself she denies having any head injury denies being on blood thinner she denies any chest pain shortness of breath abdominal pain or any other symptoms patient states she does take Percocet at home and does wish to have some pain medication while in the emergency department Related Data Home Medications Medication Instructions Recorded Confirmed bupropion HCl 300 mg 24 hr tablet, 300 mg PO QAM 01/03/19 01/29/21 extended release oxycodone-acetaminophen 10 mg-325 1 tablet PO Q6H PRN 05/07/19 01/29/21 mg tablet cephalexin 500 mg PO BID 01/30/21 01/30/21 morphine 30 mg PO BID 01/30/21 01/30/21 Allergies Allergy/AdvReac Type Severity Reaction Status Date / Time clarithromycin Allergy Mild upset Verified 02/28/21 10:08 stomach ibuprofen Allergy Mild stomach Verified 02/28/21 10:08 upset NSAIDS (Non-Steroidal Allergy Mild stomach Verified 02/28/21 10:08 Anti-Inflamma upset tramadol Allergy Mild stomach Verified 02/28/21 10:08 upset Review of Systems Review of Systems: Gen.: Denies fevers or chills ENT: Denies congestion Respiratory: Denies shortness of breath CV: Denies chest pain GI: Denies abdominal pain nausea, emesis or diarrhea Musculoskeletal: See HPI Neuro: Denies numbness, tingling, weakness or focal weakness Skin: Denies rash Except as documented, all other systems reviewed and negative PENDING SALE TO [facility] Past Medical History Medical History Asthma Chronic pain Hyperlipidemia Hypertension Surgical History Surgical History History of cholecystectomy History of tonsillectomy Family History Family History Father Family history of malignant neoplasm Patient's father is Mother Family history of malignant neoplasm Patient's mother is Social History Social History Smoking status: Never smoker Second hand tobacco smoke exposure: No Alcohol intake: never Substance use: never Spiritual care concerns: No Exam Narrative: APPEARANCE: No acute distress, nontoxic, resting in bed EYES: EOMI HEENT: Normocephalic, atraumatic, OMM Neck: Supple no midline tenderness palpation full range of motion without pain RESPIRATORY: No respiratory distress Clear to auscultation bilaterally with no rhonchi wheezing or rales. CARDIOVASCULAR: Regular rate and rhythm without murmurs rubs or gallops. ABDOMINAL: Soft, nontender, nondistended, no rebound or guarding MUSCULOSKELETAl: Moves all extremities. No clubbing, cyanosis or edema. Tender palpation of the right anterior medial lateral knee mild swelling no ecchymosis no tenderness of the right ankle or hip dorsalis pedis pulse 2+ neurovascular intact no tenderness of the bilateral upper extremities and left lower extremity NEURO: Awake and alert x 3 Following commands, speech normal, no focal deficits SKIN:: Warm, dry. No rashes lesions or abrasions PSYCHIATRIC: Normal affect/mood, Course Course Emergency Course: Patient states that she does take Percocet at home she also states that she takes oral morphine she states she is run out of her oral morphine and is requesting that I refill her discussed with her that I do not feel comfortable doing this and that she needs to follow-up with her primary care physician for her refill Discussed with patient r
--- NOTE | 2021-03-25 19:45 | PC.NURSE ---
Patient was able to help with putting on disposable pants, was able to assist with bed change and marco wrap application. Patient states pain, but was able to move and bend her right knee with minimal assistance.
[2021-03-25 20:52] VITALS: BP 136/58; PULSE 81; RESP 16; TEMP 36.7; O2SAT 97
== END 2021-03-25 21:04 | disposition home or self-care (01) ==
PROVIDERS: Emergency Provider Emergency Medicine; PCP Physician Assistant
DX: S83.91XA Sprain of unspecified site of right knee, initial encounter (principal); J45.909 Unspecified asthma, uncomplicated; E78.5 Hyperlipidemia, unspecified; I10 Essential (primary) hypertension; M17.11 Unilateral primary osteoarthritis, right knee; W18.39XA Other fall on same level, initial encounter; X50.9XXA Other and unspecified overexertion or strenuous movements or postures, initial encounter
CPT/HCPCS: 73502; 73562; 99283; A9270

== ENCOUNTER 2021-08-24 23:41 | Emergency (ER) | payer MEDICARE, SELFPAY ==
--- NOTE | ~2021-08-24 | CT_ITS ---
EXAMINATION: CT abdomen pelvis wo con DATE: 08/25/2021 02:19 INDICATION: Nausea and vomiting and diarrhea. Lower abdominal pain. TECHNIQUE: Computed tomography (CT) of the abdomen and pelvis was performed without intravenous contr ast. Automated exposure control and iterative reconstruction technique were employed. The dose-length product was 1508.16 mGy-cm. COMPARISON: CT abdomen and pelvis 02/25/2021 FINDINGS: The visualized portions of the lung bases demonstrate mild atelectasis. No pleural effusion . Cardiomegaly is noted. No pericardial effusion. There are coronary artery calcifications. The liver is normal. There are changes of cholecystectomy. The spleen, pancreas, and adrenal glands are normal . There is cortical thinning of the kidneys. There is no urolithiasis. The appendix is normal. There are no dilated loops of bowel. There is an umbilical hernia containing fat. Pelvic floor dysfunction is noted. There are no pathologically enlarged lymph nodes. There is no free intraperitoneal fluid. T here is gas in the bladder lumen, likely from recent instrumentation. There is moderate thoracolumbar spondylosis. There is mild chronic anterior wedging of multiple thoracic vertebral bodies. IMPRESSION: 1. Umbilical hernia containing fat. 2. Pelvic floor dysfunction. Reviewed, dictated and finalized at location [facility].
[2021-08-25] VITALS (9 sets, daily range): BP systolic 124–142; BP diastolic 79–117; PULSE 80–87; RESP 18–23; TEMP 36.6; O2SAT 80–99
[2021-08-25 00:59] LABS: Basophils Absolute Auto 0.1 K/mm3 (0.0-0.1); Basophils Percent Auto 0.6 % (0.2-1.2); Eosinophils Absolute Auto 0.2 K/mm3 (0-0.3); Hematocrit 31.6 % (37.0-47.0); Hemoglobin 9.5 g/dL (12.0-15.0); Immature Granulocyte Absolute 0.05 K/mm3 (0.00-0.031); Immature Granulocyte Percent A 0.6 % (0-0.5); Lymphocytes Absolute Auto 1.89 K/mm3 (0.9-3.2); Lymphocytes Percent Auto 21.5 % (18.3-44.2); Mean Corpuscular HGB Conc 30.1 g/dl (32-36); Mean Corpuscular Hemoglobin 23.1 pg (26-34); Mean Corpuscular Volume 76.7 fl (80-100); Mean Platelet Volume 8.9 fl (7.4-10.4); Monocytes Absolute Auto 0.7 K/mm3 (0.1-0.6); Monocytes Percent Auto 7.5 % (2.6-8.5); Neutrophils Percent Auto 67.8 % (45.5-73.1); Platelet Count Result 346 k/mm3 (150-375); Red Blood Count 4.12 M/mm3 (4.2-5.4); Red Cell Distribution Width 14.9 % (11.5-14.5); White Blood Count 8.8 K/mm3 (4.5-10.0)
[2021-08-25 01:10] LABS: Alanine Aminotransferase 11 U/L (6-35); Albumin Level 4.4 g/dL (3.5-5.1); Alkaline Phosphatase 103 U/L (38-126); Anion Gap 7 mmol/L (8-16); Aspartate Amino Transferase 18 U/L (14-36); Bilirubin,Total 0.4 mg/dL (0.2-1.3); Blood Urea Nitrogen 13 mg/dL (7-17); Calcium 9.6 mg/dL (8.4-10.2); Carbon Dioxide 26 mmol/L (22-30); Chloride 102 mmol/L (98-107); Estimated CRCL calculation 54 ml/min; Estimated Glomerular Filt Rate > 60; Glucose 97 mg/dL (65-110); Lipase 24 U/L (23-300); Potassium 4.1 mmol/L (3.4-5.0); Sodium 135 mmol/L (137-145)
--- NOTE | 2021-08-25 01:51 | ED.GENADULT ---
HPI - General Adult General Chief complaint: Abdominal Pain Stated complaint: n/v/d x 2 days Time Seen by Provider: 08/25/21 01:34 History of Present Illness HPI narrative: 71-year-old female present to the emergency department for evaluation of 2 days of nausea vomiting and diarrhea with associated lower abdominal pain. Related Data Home Medications Medication Instructions Recorded Confirmed bupropion HCl 300 mg 24 hr tablet, 300 mg PO QAM 01/03/19 08/04/21 extended release fluticasone 250 mcg-salmeterol 50 1 inh inhalation BID 03/30/21 08/04/21 mcg/dose blistr powdr for inhalation (Wixela Inhub) fentanyl 12 mcg/hr transdermal 1 patch transdermal Q72H 06/22/21 08/04/21 patch Allergies Allergy/AdvReac Type Severity Reaction Status Date / Time clarithromycin Allergy Mild upset Verified 08/25/21 00:24 stomach ibuprofen Allergy Mild stomach Verified 08/25/21 00:24 upset NSAIDS (Non-Steroidal Allergy Mild stomach Verified 08/25/21 00:24 Anti-Inflamma upset tramadol Allergy Mild stomach Verified 08/25/21 00:24 upset Review of Systems Review of Systems: CONSTITUTIONAL: Denies fever, chills, or sweats. EYES: Denies visual changes, redness, or discharge. ENT: Denies rhinorrhea, congestion, sore throat, or otalgia. CARDIOVASCULAR: Denies chest pain, palpitations, or edema. RESPIRATORY: Denies cough or dyspnea. GASTROINTESTINAL: See HPI GENITOURINARY: Some burning with urination SKIN: Denies rash or itching. MUSCULOSKELETAL: Denies back pain, joint pain, or myalgia. NEUROLOGIC: Denies headache, numbness, or weakness. [facility] Past Medical History Medical History Asthma Chronic pain Hyperlipidemia Hypertension Surgical History Surgical History History of cholecystectomy History of tonsillectomy Family History Family History Father Family history of malignant neoplasm Patient's father is Mother Family history of malignant neoplasm Patient's mother is Social History Social History Smoking status: Never smoker Second hand tobacco smoke exposure: No Alcohol intake: never Substance use: never Spiritual care concerns: No Exam Narrative: APPEARANCE: Well appearing, no pain, no distress, well-nourished. HEAD: normocephalic, atraumatic. EYES: PERRLA/EOMI, conjunctivae clear. NOSE: Normal no drainage THROAT: Pharynx clear, no exudate. NECK: Supple. No adenopathy, no masses. RESPIRATORY: Airway patent, respirations nonlabored. Clear to auscultation bilaterally, no rales, rhonchi, wheezing. CARDIOVASCULAR: Regular rate and rhythm without murmurs rubs or gallops. ABDOMINAL: No abdominal tenderness to palpation. MUSCULOSKELETAL: Moves all extremities. Strength/ROM intact, No edema, No calf tenderness. NEURO: Alert. Cranial nerves II through XII intact. Grossly intact SKIN: Warm, dry. Normal Color Course Course Emergency Course: Patient had nausea without vomiting in the emergency department. Urine was concerning for urinary tract infection. Patient was started antibiotics in the emergency department. Vital Signs Vital signs: Vital Signs Temperature 97.9 F 08/25/21 00:20 Pulse Rate 82 08/25/21 00:20 Respiratory Rate 18 08/25/21 00:20 Blood Pressure 124/90 08/25/21 00:20 Pulse Oximetry 99 08/25/21 00:20 Temperature 97.9 F 08/25/21 00:20 Pulse Rate 80 08/25/21 05:55 Respiratory Rate 18 08/25/21 05:55 Blood Pressure 130/79 08/25/21 05:55 Pulse Oximetry 98 08/25/21 05:55 Medical Decision Making Vital Signs Vital Signs: Vital Signs Temperature 97.9 F 08/25/21 00:20 Pulse Rate 82 08/25/21 00:20 Respiratory Rate 18 08/25/21 00:20 Blood Pressur
[2021-08-25 01:53] LABS: Appearance Urine Clear (Clear); Bilirubin Urine 1+ (Negative); Blood Urine 1+ (Negative); Color Urine Yellow (Yellow); Glucose Urine UA Negative (Negative); Ketones Urine 2+ mg/dL (Negative); Leukocyte Esterase Ur Trace LEU/UL (Negative); Nitrate Urine Negative (Negative); Protein Urine Negative (Negative); Specific Grav Ur 1.025 (1.001-1.035); Urobilinogen Urine 0.2 mg/dL (<2.0)
[2021-08-25 01:57] LABS: Add Urine Microscopic? YES; Mucus Urine Rare /lpf; Squamous Epithelial Cell Urine Occasional /hpf (Few)
[2021-08-25] MEDS: ONDANSETRON INJ 4 MG/2 ML VIAL IV PUSH (01:58)
[2021-08-25] MEDS: HYDROmorphone HCL INJ (*CRX) 1 MG/ML SYR 0.5 MG IV PUSH ×2 (01:59→05:06)
[2021-08-25] MEDS: SODIUM CHLORIDE 0.9% IV 1,000 ML 999 ML IV CONT (02:20)
[2021-08-25] MEDS: PHENAZOPYRIDINE HCL 100 MG TABLET PO (05:06)
== END 2021-08-25 05:58 | disposition home or self-care (01) ==
PROVIDERS: Emergency Provider Emergency Medicine; PCP Physician Assistant
DX: N39.0 Urinary tract infection, site not specified (principal); J45.909 Unspecified asthma, uncomplicated; E78.5 Hyperlipidemia, unspecified; I10 Essential (primary) hypertension
CPT/HCPCS: 36415; 74176; 80053; 81001; 83690; 85025; 87086; 87088; 96361; 96365; 96375; 96376; 99284; A9270; J0696; J1170; J2405; J7030

== ENCOUNTER 2021-10-05 05:28 | Emergency (ER) | payer MEDICARE, SELFPAY ==
--- NOTE | ~2021-10-05 | CT_ITS ---
EXAMINATION: CT abdomen pelvis w con DATE: 10/05/2021 07:00 INDICATION: Epigastric abdominal pain. TECHNIQUE: Computed tomography (CT) of the abdomen and pelvis was performed with 100 mL Omnipaque 350 intravenous contrast. Automated exposure control and iterative reconstruction technique were employe d. The dose-length product was 1490.88 mGy-cm. COMPARISON: CT abdomen and pelvis 08/25/2021 FINDINGS: The visualized portions of the lung bases demonstrate mild atelectasis. No pleural effusion . There is left atrial enlargement of the heart. No pericardial effusion. Pneumobilia is noted, likel y secondary to sphincterotomy. There are changes of cholecystectomy. There is a calcification in the pancreas, consistent with chronic pancreatitis. The spleen and adrenal glands are normal. There is co rtical thinning of the kidneys. There is diverticulosis of the colon without evidence of diverticulit is. There are no dilated loops of bowel. The appendix is normal. There is an umbilical hernia contain ing fat. Pelvic floor dysfunction is noted. There is an old healed right rib fracture. There is mild chronic height loss of multiple thoracic vertebral bodies. There is moderate lumbar spondylosis. IMPRESSION: 1. Umbilical hernia containing fat. Reviewed, dictated and finalized at location [facility].
[2021-10-05 05:23] VITALS: BP 156/70; PULSE 97; RESP 18; TEMP 37.1; O2SAT 96
[2021-10-05] MEDS: MORPHINE SULFATE (*CRX) 4 MG/ML INJ IV PUSH (06:02)
[2021-10-05] MEDS: ONDANSETRON INJ 4 MG/2 ML VIAL IV PUSH (06:02)
[2021-10-05] MEDS: SODIUM CHLORIDE 0.9% IV 1,000 ML 999 ML IV CONT (06:02)
[2021-10-05 06:22] LABS: Basophils Absolute Auto 0.1 K/mm3 (0.0-0.1); Basophils Percent Auto 0.7 % (0.2-1.2); Eosinophils Absolute Auto 0.3 K/mm3 (0-0.3); Eosinophils Percent Auto 3.5 % (0-4.4); Hematocrit 29.1 % (37.0-47.0); Hemoglobin 8.5 g/dL (12.0-15.0); Immature Granulocyte Absolute 0.03 K/mm3 (0.00-0.031); Immature Granulocyte Percent A 0.3 % (0-0.5); Lymphocytes Percent Auto 20.3 % (18.3-44.2); Mean Corpuscular HGB Conc 29.2 g/dl (32-36); Mean Corpuscular Hemoglobin 22.7 pg (26-34); Mean Corpuscular Volume 77.8 fl (80-100); Mean Platelet Volume 9.1 fl (7.4-10.4); Monocytes Absolute Auto 0.8 K/mm3 (0.1-0.6); Monocytes Percent Auto 9.1 % (2.6-8.5); Neutrophils Absolute Auto 5.9 K/mm3 (1.3-6.7); Neutrophils Percent Auto 66.1 % (45.5-73.1); Platelet Count Result 275 k/mm3 (150-375); Red Blood Count 3.74 M/mm3 (4.2-5.4); Red Cell Distribution Width 15.8 % (11.5-14.5); White Blood Count 8.9 K/mm3 (4.5-10.0)
[2021-10-05 06:29] LABS: Appearance Urine Clear (Clear); Bilirubin Urine Negative (Negative); Blood Urine 1+ (Negative); Color Urine Yellow (Yellow); Glucose Urine UA Negative (Negative); Ketones Urine Negative (Negative); Leukocyte Esterase Ur 1+ LEU/UL (Negative); Nitrate Urine Negative (Negative); Protein Urine Negative (Negative); Urobilinogen Urine 0.2 mg/dL (<2.0)
[2021-10-05 06:32] LABS: RBC Urine 0-2 /hpf (0-2); Squamous Epithelial Cell Urine Occasional /hpf (Few)
[2021-10-05 06:38] LABS: Alanine Aminotransferase 7 U/L (6-35); Albumin Level 3.9 g/dL (3.5-5.1); Alkaline Phosphatase 110 U/L (38-126); Anion Gap 7 mmol/L (8-16); Aspartate Amino Transferase 15 U/L (14-36); Bilirubin,Total 0.3 mg/dL (0.2-1.3); Blood Urea Nitrogen 24 mg/dL (7-17); Calcium 8.9 mg/dL (8.4-10.2); Carbon Dioxide 27 mmol/L (22-30); Chloride 102 mmol/L (98-107); Estimated CRCL calculation 54 ml/min; Estimated Glomerular Filt Rate 55; Glucose 110 mg/dL (65-110); Lipase 78 U/L (23-300); Potassium 4.4 mmol/L (3.4-5.0); Sodium 136 mmol/L (137-145)
[2021-10-05 06:46] LABS: Anisocytosis 1+ (NORMAL); Hypochromasia 1+ (NORMAL); Ovalocytes 1+ (NORMAL); Platelet Estimate Adequate (Adequate)
[2021-10-05 06:47] LABS: Add Urine Microscopic? YES
[2021-10-05 07:01] VITALS: BP 108/73
--- NOTE | 2021-10-05 07:25 | ED.ABDPAIN ---
HPI - Abdominal Pain General Chief Complaint: Abdominal Pain Stated Complaint: ABD PAIN, N/V Time Seen by Provider: 10/05/21 05:29 History of Present Illness HPI narrative: Patient is a 71-year-old female who presents ER with nausea and vomiting epigastric pain. Nausea and vomiting ongoing for 2 days. No alleviating factors. Cannot describe aggravating factors. Epigastric pain has become constant this evening and this without radiation. Denies fevers or chills or sweats. No diarrhea. Has had issues with vomiting in the past. She is unsure what causes it. Related Data Home Medications Medication Instructions Recorded Confirmed bupropion HCl 300 mg 24 hr tablet, 300 mg PO QAM 01/03/19 08/04/21 extended release fluticasone 250 mcg-salmeterol 50 1 inh inhalation BID 03/30/21 08/04/21 mcg/dose blistr powdr for inhalation (Wixela Inhub) fentanyl 12 mcg/hr transdermal 1 patch transdermal Q72H 06/22/21 08/04/21 patch Allergies Allergy/AdvReac Type Severity Reaction Status Date / Time clarithromycin Allergy Mild upset Verified 10/05/21 05:35 stomach ibuprofen Allergy Mild stomach Verified 10/05/21 05:35 upset NSAIDS (Non-Steroidal Allergy Mild stomach Verified 10/05/21 05:35 Anti-Inflamma upset tramadol Allergy Mild stomach Verified 10/05/21 05:35 upset Review of Systems Review of Systems: All systems reviewed & are unremarkable except as noted in HPI and below Constitutional: Constitutional: Denies chills, Denies fatigue and Denies fever(s) ENT: Denies nasal congestion and Denies sore throat Cardiovascular: Cardiovascular: Denies chest pain, Denies rapid heart rate and Denies radiating jaw, neck or arm pain Respiratory: Respiratory: Denies cough and Denies dyspnea Gastrointestinal: Gastrointestinal: Reports abdominal pain, Denies diarrhea, Reports nausea and Reports vomiting Neurologic: Denies syncope, Denies headache(s) and Denies focal weakness PMF Past Medical History Medical History Asthma Chronic pain Hyperlipidemia Hypertension Surgical History Surgical History History of cholecystectomy History of tonsillectomy Family History Family History Father Family history of malignant neoplasm Patient's father is Mother Family history of malignant neoplasm Patient's mother is Social History Social History Smoking status: Never smoker Second hand tobacco smoke exposure: No Alcohol intake: never Substance use: never Spiritual care concerns: No Exam Narrative: GENERAL: Uncomfortable appearing, overweight, dry heaving. HEAD: Normocephalic, atraumatic. EYES: PERRL and EOMI. ENT: Mucous membranes moist. CHEST: Clear to auscultation. No respiratory distress. HEART: Regular rate and rhythm. Normal peripheral pulses. ABDOMEN: Soft, diffuse tenderness in the upper abdomen that is nonlocalized without guarding, nondistended. EXTREMITIES: Normal range of motion. No edema. SKIN: Warm, dry, no rash. NEURO: Alert and oriented x3. PSYCH: Normal mood and affect. Course Course Emergency Course: Resting comfortably, informed of results. Patient reports sometimes UTIs can make her sick and given the fact that she has a few white cells and some leukocyte Estrace we will put her on a short course of Macrobid. Vital Signs Vital signs: Vital Signs Temperature 98.7 F 10/05/21 05:23 Pulse Rate 97 10/05/21 05:23 Respiratory Rate 18 10/05/21 05:23 Blood Pressure 156/70 H 10/05/21 05:23 Pulse Oximetry 96 10/05/21 05:23 Oxygen Delivery Room Air 10/05/21 05:23 Temperature 98.7 F 10/05/21 05:23 Pulse Rate 88 10/05/21 08:30 Respiratory Rate 18 10/05/21 08:30 Blood
[2021-10-05 08:30] VITALS: BP 120/64; PULSE 88; RESP 18; O2SAT 94
== END 2021-10-05 08:32 | disposition home or self-care (01) ==
PROVIDERS: Emergency Provider Emergency Medicine; PCP Physician Assistant
DX: N39.0 Urinary tract infection, site not specified (principal); R11.2 Nausea with vomiting, unspecified; R10.13 Epigastric pain; J45.909 Unspecified asthma, uncomplicated; E78.5 Hyperlipidemia, unspecified; I10 Essential (primary) hypertension
CPT/HCPCS: 36415; 74177; 80053; 81001; 83690; 85025; 96361; 96374; 96375; 99284; J2270; J2405; J7030; Q9967

== ENCOUNTER 2021-10-09 04:58 | Inpatient (IN) | payer MEDICARE, SELFPAY ==
[2021-10-09] VITALS (26 sets, daily range): BP systolic 106–171; BP diastolic 50–85; PULSE 70–103; RESP 13–24; TEMP 36.4–36.8; O2SAT 94–100
--- NOTE | ~2021-10-09 | CT_ITS ---
EXAMINATION: CT abdomen pelvis wo con DATE: 10/09/2021 06:16 INDICATION: Left-sided abdominal pain. Nausea, vomiting and diarrhea for 5 days. Recent urinary tract infection. TECHNIQUE: Computed tomography (CT) of the abdomen and pelvis was performed without intravenous contr ast. Automated exposure control and iterative reconstruction technique were employed. Exam dose: 140 6.09 mGy-cm total exam DLP. COMPARISON: 10/05/2021 CT abdomen pelvis FINDINGS: The lung bases are clear. Cardiomegaly. No pericardial or pleural effusion. Status post cholecystectomy. The liver, spleen, pancreas, adrenal glands and kidneys are unremarkable on this limited noncontrast examination. No bile duct or pancreatic duct dilatation. There is evidence for calcification but normal caliber of the abdominal aorta. No intraperitoneal or retroperitoneal or pelvic mass lesion or adenopathy or ascites. Retroverted uterus. The urinary bladder is unremarkable. Diverticulosis of the sigmoid colon; no CT evidence of diverticulitis. No bowel obstruction, bowel wa ll thickening, pneumatosis or intraperitoneal free air. Normal appendix. Fat-containing umbilical hernia. Diffuse idiopathic skeletal hyperostosis of the thoracic spine. Loss of height of some thoracic verte bral bodies, most prominent at T10, chronic. Degenerative changes apophyseal joints with associated grade 1 anterolisthesis at L4-5. Severe degene rative disc disease at L5-S1. IMPRESSION: Status post cholecystectomy Umbilical hernia Diverticulosis of the sigmoid colon; no evidence of diverticulitis Reviewed, dictated and finalized at [facility] Reviewed, dictated and finalized at [facility].
[2021-10-09 05:17] LABS: Basophils Absolute Auto 0.1 K/mm3 (0.0-0.1); Basophils Percent Auto 0.6 % (0.2-1.2); Eosinophils Absolute Auto 0.3 K/mm3 (0-0.3); Eosinophils Percent Auto 2.6 % (0-4.4); Hematocrit 33.4 % (37.0-47.0); Hemoglobin 10.1 g/dL (12.0-15.0); Immature Granulocyte Absolute 0.08 K/mm3 (0.00-0.031); Immature Granulocyte Percent A 0.7 % (0-0.5); Lymphocytes Absolute Auto 2.46 K/mm3 (0.9-3.2); Lymphocytes Percent Auto 22.3 % (18.3-44.2); Mean Corpuscular HGB Conc 30.2 g/dl (32-36); Mean Corpuscular Hemoglobin 22.6 pg (26-34); Mean Corpuscular Volume 74.9 fl (80-100); Mean Platelet Volume 8.6 fl (7.4-10.4); Monocytes Absolute Auto 1.1 K/mm3 (0.1-0.6); Monocytes Percent Auto 9.7 % (2.6-8.5); Neutrophils Absolute Auto 7.1 K/mm3 (1.3-6.7); Neutrophils Percent Auto 64.1 % (45.5-73.1); Platelet Count Result 294 k/mm3 (150-375); Red Blood Count 4.46 M/mm3 (4.2-5.4); Red Cell Distribution Width 16.2 % (11.5-14.5)
--- NOTE | 2021-10-09 05:25 | PC.NURSE ---
sales technician home theater was at bedside to take pt to CT. Pt refused to go without pain medication. MD Dr. Valdovinos notified
[2021-10-09 05:26] LABS: Appearance Urine Clear (Clear); Bilirubin Urine Negative (Negative); Blood Urine 2+ (Negative); Color Urine Yellow (Yellow); Glucose Urine UA Negative (Negative); Ketones Urine Trace mg/dL (Negative); Leukocyte Esterase Ur Trace LEU/UL (Negative); Nitrate Urine Negative (Negative); Protein Urine 1+ mg/dL (Negative); Urobilinogen Urine 0.2 mg/dL (<2.0)
[2021-10-09 05:29] LABS: Lactic Acid Reflex 0.9 mmol/L (0.7-2.0)
[2021-10-09 05:30] LABS: Alanine Aminotransferase 10 U/L (6-35); Albumin Level 4.5 g/dL (3.5-5.1); Alkaline Phosphatase 105 U/L (38-126); Anion Gap 9 mmol/L (8-16); Aspartate Amino Transferase 17 U/L (14-36); Bilirubin,Total 0.6 mg/dL (0.2-1.3); Blood Urea Nitrogen 13 mg/dL (7-17); Calcium 9.2 mg/dL (8.4-10.2); Carbon Dioxide 24 mmol/L (22-30); Chloride 92 mmol/L (98-107); Estimated CRCL calculation 50 ml/min; Estimated Glomerular Filt Rate 55; Glucose 119 mg/dL (65-110); Lipase 99 U/L (23-300); Sodium 125 mmol/L (137-145)
[2021-10-09 05:37] LABS: Squamous Epithelial Cell Urine Occasional /hpf (Few)
[2021-10-09 05:41] LABS: Add Urine Microscopic? YES
[2021-10-09] MEDS: HYDROmorphone HCL INJ (*CRX) 1 MG/ML SYR 0.5 MG IV PUSH (05:45)
[2021-10-09] MEDS: ONDANSETRON INJ 4 MG/2 ML VIAL IV PUSH ×4 (05:45→22:43)
--- NOTE | 2021-10-09 06:09 | ED.GENADULT ---
HPI - General Adult General Chief complaint: Nausea/Vomiting/Diarrhea <Fernando Valdovinos MD - Last Filed: 10/09/21 07:05> Stated complaint: vomiting <Fernando Valdovinos MD - Last Filed: 10/09/21 07:05> Time Seen by Provider: 10/09/21 05:00 <Fernando Valdovinos MD - Last Filed: 10/09/21 07:05> History of Present Illness HPI narrative: This is a 71-year-old female presenting ED with worsening nausea and vomiting. patient has been having persistent nausea and vomiting since Sunday. It is associated with left-sided flank and abdominal pain. Described as a sharp pain that comes and goes. It is 10 out 10 intensity. Patient has never experienced pain like this before. There were no exacerbating relieving factors. Patient has not been able to keep down fluids. She was seen in the hospital several days ago and was treated for a possible UTI and given Zofran. Patient is not able to keep down any of the medications and has not arrived of Zofran. She has noted that she has had increased urinary frequency but no dysuria or urinary urgency. She denies fever chills chest pain or difficulty breathing. Patient has history of kidney stones in her 30s. <Fernando Valdovinos MD - Last Filed: 10/09/21 07:05> Related Data Home medications: Home Medications Medication Instructions Recorded Confirmed bupropion HCl 300 mg 24 hr tablet, 300 mg PO QAM 01/03/19 08/04/21 extended release fluticasone 250 mcg-salmeterol 50 1 inh inhalation BID 03/30/21 08/04/21 mcg/dose blistr powdr for inhalation (Wixela Inhub) fentanyl 12 mcg/hr transdermal 1 patch transdermal Q72H 06/22/21 08/04/21 patch <Fernando Valdovinos MD - Last Filed: 10/09/21 07:05> Allergies/adverse reactions: Allergies Allergy/AdvReac Type Severity Reaction Status Date / Time clarithromycin Allergy Mild upset Verified 10/07/21 09:49 stomach ibuprofen Allergy Mild stomach Verified 10/07/21 09:49 upset NSAIDS (Non-Steroidal Allergy Mild stomach Verified 10/07/21 09:49 Anti-Inflamma upset tramadol Allergy Mild stomach Verified 10/07/21 09:49 upset <Fernando Valdovinos MD - Last Filed: 10/09/21 07:05> Review of Systems Review of Systems: CONSTITUTIONAL: Denies night sweats. EYES: No eye pain ENT: Denies rhinorrhea CARDIOVASCULAR: Denies palpitations RESPIRATORY: Denies hemoptysis GASTROINTESTINAL: Denies hematemesis GENITOURINARY: Denies hematuria. SKIN: Denies rash MUSCULOSKELETAL: Denies myalgia. NEUROLOGIC: Denies weakness. PSYCHIATRIC: Denies delusions <Fernando Valdovinos MD - Last Filed: 10/09/21 07:05> [facility] Past Medical History Medical History: Medical History Asthma Chronic pain Hyperlipidemia Hypertension <Fernando Valdovinos MD - Last Filed: 10/09/21 07:05> Surgical History Surgical History: Surgical History History of cholecystectomy History of tonsillectomy <Fernando Valdovinos MD - Last Filed: 10/09/21 07:05> Family History Family History: Family History Father Family history of malignant neoplasm Patient's father is Mother Family history of malignant neoplasm Patient's mother is <Fernando Valdovinos MD - Last Filed: 10/09/21 07:05> Social History Social History: Social History Smoking status: Never smoker Second hand tobacco smoke exposure: No Alcohol intake: never Substance use: never Spiritual care concerns: No <Fernando Valdovinos MD - Last Filed: 10/09/21 07:05> Exam Narrative: APPEARANCE: No apparent distress. Head atraumatic. EYES: PERRLA/EOMI, NOSE: Normal no drainage NECK: Supple, Trachea midline RESPIRATORY: CTAB, No increased work of breathing. CARDIOVASCULAR: S1S2 appreciated ABDOMINAL: Te
[2021-10-09 07:58] LABS: SARS-CoV-2 RNA PCR Negative
[2021-10-09] MEDS: METOCLOPRAMIDE HCL INJ 10 MG/2 ML VIAL IV PUSH (10:11)
[2021-10-09] MEDS: diphenhydrAMINE HCl INJ 50 MG/ML VIAL IV PUSH (10:12)
--- NOTE | 2021-10-09 10:34 | ADMGEN ---
This patient, Claudette Gomez, was admitted to Medical Room 349-01. Patient/family oriented to hospital policies and general routines including ID bracelet, bed and alarms, visiting hours, pain management, procedures, bathroom and other care routines, personal items, smoking policy, room service/diet, and visiting hours. Information on how to activate the Rapid Response Team has been discussed. Patient/Family are encouraged to report perceived risks to care and to ask questions if they do not understand what they are told or what they should do.
[2021-10-09] MEDS: SODIUM CHLORIDE 0.9% IV 1,000 ML 125 ML IV CONT ×3 (10:53→20:02)
--- NOTE | 2021-10-09 13:10 | PM.IMHP ---
H&P: HPI History of Present Illness Date/Time: 10/09/21 13:10 Chief Complaint: Nausea and vomiting Narrative: Date of service: 10/09/2021 Claudette Gomez is a 71-year-old female with a history of asthma, hypertension, hyperlipidemia, anxiety, and arthritis who presented to the emergency department on 10/09/2021 with complaints of nausea, vomiting, and abdominal pain. The patient came to the ER on 10/05/2021 and was diagnosed with UTI and prescribed 5 days of Macrobid. The patient reports that for the past 1 week she has been vomiting persistently. She has not been able to keep down any foods or liquids. She did not take any of her antibiotic as she stated she could not keep it down. She states she has been retching forcefully. Yesterday she had about 4 bites of chicken soup and has been trying to take at least a few sips of water. Describes lower abdominal pain ?like a UTI pain that has spread from her lower abdomen up to the left flank. She describes this as a constant, sharp/stabbing sensation that she rates as 7/10. She denies back pain. She denies dysuria or hematuria but does endorse urinary frequency. She denies fevers or chills but does state that she has been shaking. No diarrhea. In the ED, she was mildly tachycardic, afebrile, additional vital signs stable, WBC 11.0, sodium 125, lipase within normal limits, additional laboratory workup unremarkable, UA with trace leuk esterase and 7-9 WBC, COVID negative, CT of the abdomen/pelvis showed no acute findings. She is being admitted to the hospitalist service for observation. Supervising physician for this history and physical is Dr. Radha Kauffman. Review of Systems Review of Systems: All systems reviewed with pertinent positives and negatives as per HPI. Additionally, the patient endorses weakness and fatigue. She denies dizziness, lightheadedness, shortness of breath, chest pain, palpitations. She had a loose stool yesterday but has since had normal formed stool. She denies melena or hematochezia. Denies hematemesis. She has chronic knee pain from arthritis and typically gets around using a wheelchair due to this pain. She admits to feeling depressed due to the recent of her son but denies thoughts of harming herself. PMFSH Past Medical History Medical History (Updated 10/09/21 @ 13:23 by Rosemarie Klein PA-C) Anxiety Asthma Chronic knee pain GERD (gastroesophageal reflux disease) Hyperlipidemia Hypertension Migraine Vitamin D deficiency Surgical History Surgical History History of cholecystectomy History of tonsillectomy Family History Family History (Updated 10/09/21 @ 13:19 by Rosemarie Klein PA-C) Father Family history of malignant neoplasm Patient's father is Mother Family history of malignant neoplasm Patient's mother is Social History Social History (Updated 10/09/21 @ 13:21 by Rosemarie Klein PA-C) Social History: Lives at home alone Has caregivers that come in 9 hours a week PCP: EVERTON Luz POA: Shante, daughter Code status: Full Code Smoking status: Never smoker Second hand tobacco smoke exposure: No Alcohol intake: never Substance use: never Meds Home Medications and Allergies Home Medications Medication Instructions Recorded Confirmed Type bupropion HCl 300 mg 24 hr tablet, 300 mg PO QAM 01/03/19 10/09/21 History extended release albuterol sulfate 2.5 mg/3 mL 2.5 mg (3 mL) inhalation Q6H PRN 11/05/20 10/09/21 Rx (0.083 %) solution for nebulization shortness of breath or wheezing #90 mL ondansetron HCl 4 mg tablet 4 mg PO Q6H PRN nausea and 02/25/21 10/09/21 Rx (Zofran) vomiting #10 tabs fluticasone 250 mcg-salmeterol 50 1 inh inhalation BID 03/30/21 10/09/21 History mcg/dose blistr powdr for inhalation (Wixela Inhub) hydrochlorothiazide 12.5 mg tablet 12.5 mg PO D
[2021-10-09] MEDS: HYDROcodone/acetaminophen (*CRX) 5-325 MG TABLET 1 TAB PO ×2 (14:12→20:16)
[2021-10-09 14:13] LABS: Sodium 125 mmol/L (137-145)
[2021-10-09] MEDS: hydrOXYzine HCL 25 MG TABLET 50 MG PO ×2 (15:59→22:43)
--- NOTE | 2021-10-09 20:24 | PC.NURSE ---
Pt states she does not take the fentanyl transdermal patches prescribed to her and she states she does not have a patch on at this time.
[2021-10-09 21:35] LABS: Sodium 124 mmol/L (137-145)
[2021-10-10] MEDS: MELATONIN 3 MG TABLET 6 MG PO ×2 (00:48→20:25)
[2021-10-10] MEDS: HYDROcodone/acetaminophen (*CRX) 5-325 MG TABLET 1 TAB PO ×5 (00:51→22:22)
[2021-10-10] MEDS: SODIUM CHLORIDE 0.9% IV 1,000 ML 125 ML IV CONT ×2 (04:15→12:05)
[2021-10-10 05:14] VITALS: BP 146/65; PULSE 67; RESP 16; TEMP 36.1; O2SAT 97
[2021-10-10 06:15] LABS: Hematocrit 30.2 % (37.0-47.0); Mean Corpuscular HGB Conc 29.8 g/dl (32-36); Mean Platelet Volume 9.2 fl (7.4-10.4); Platelet Count Result 277 k/mm3 (150-375); Red Blood Count 3.92 M/mm3 (4.2-5.4); Red Cell Distribution Width 16.6 % (11.5-14.5); White Blood Count 8.9 K/mm3 (4.5-10.0)
[2021-10-10 06:25] LABS: Anion Gap 6 mmol/L (8-16); Blood Urea Nitrogen 11 mg/dL (7-17); Carbon Dioxide 23 mmol/L (22-30); Chloride 100 mmol/L (98-107); Estimated CRCL calculation 50 ml/min; Estimated Glomerular Filt Rate 55; Glucose 114 mg/dL (65-110); Potassium 3.6 mmol/L (3.4-5.0); Sodium 129 mmol/L (137-145)
[2021-10-10] MEDS: MONTELUKAST SODIUM 10 MG TABLET PO (09:08)
[2021-10-10] MEDS: LOSARTAN POTASSIUM 100 MG TABLET PO (09:08)
[2021-10-10] MEDS: PANTOPRAZOLE 40 MG TABLET BY MOUTH (09:08)
[2021-10-10] MEDS: buPROPion HCL XL (24 HR) 150 MG TABCR 300 MG PO (09:08)
[2021-10-10] MEDS: ENOXAPARIN 40 MG/0.4 ML SYRINGE SUB-Q (09:10)
[2021-10-10] MEDS: ONDANSETRON INJ 4 MG/2 ML VIAL IV PUSH ×3 (09:13→20:24)
[2021-10-10] MEDS: FLUTICASONE/SALMETEROL 115-21 MCG INHALER 1 PUFF 2 PUFF INHALATION ×3 (09:32→21:05)
[2021-10-10] MEDS: hydrOXYzine HCL 25 MG TABLET 50 MG PO ×3 (10:16→20:24)
--- NOTE | 2021-10-10 15:05 | PC.NURSE ---
Patient has been asking for medication orders by name. Patient asked for an immodium order. This nurse stated that she would ask the hospitalist, but that didnt think it was necessary. Per hospitalist no immodium is needed at this time. Patient calling frequently asking for new orders.
[2021-10-10 15:07] VITALS: BP 146/64; PULSE 103; RESP 20; TEMP 36.1; O2SAT 100
--- NOTE | 2021-10-10 16:26 | P.PNIM_ITS ---
Progress Note: A&P Assessment and Plan (1) Nausea and vomiting: Code(s): R11.2 - Nausea with vomiting, unspecified Status: Acute Assessment and Plan: Resolved. Persistent nausea and vomiting x1 week prior to presentation * Suspect secondary to acute, untreated UTI * Antiemetics as needed * She has been adequately rehydrated with IV fluids and is tolerating p.o. intake. Will discontinue IV fluids at this time * Advance to bland diet. (2) Urinary tract infection: Code(s): N39.0 - Urinary tract infection, site not specified Status: Acute Assessment and Plan: Diagnosed with UTI on 10/05/2021 at ER visit Patient symptomatic with nausea, vomiting, urinary frequency, suprapubic discomfort * Patient prescribed 5 days p.o. Macrobid, did not take any antibiotics due to nausea and vomiting. No culture obtained at that time * Repeat UA on 10/09/21 is slightly abnormal. * Urine culture is pending * Patient with clinical signs of ascending urinary tract infection, however no findings on CT scan to support pyelonephritis * Mild leukocytosis has resolved No fever. * Continue IV ceftriaxone while awaiting urine culture (3) Abdominal pain: Code(s): R10.9 - Unspecified abdominal pain Status: Acute Assessment and Plan: Improving. Presented with stabbing left-sided abdominal and flank pain. * CT of abdomen/pelvis with no acute intra-abdominal findings * Patient does have remote history of nephrolithiasis. No findings on CT * Suspect secondary to untreated UTI as above * Continue IV antibiotics * Analgesics available as needed (4) Acute hyponatremia: Code(s): E87.1 - Hypo-osmolality and hyponatremia Status: Acute Assessment and Plan: Suspect secondary to dehydration given nausea and vomiting * Review of prior labs demonstrates chronic hyponatremia. Baseline around 132 * Sodium on presentation was 125. * Improved with IV hydration. Sodium is 129 today. * Recheck this afternoon to evaluate sodium trend * Patient is tolerating p.o. intake, therefore will discontinue IV fluids at this time and monitor sodium * Continue with IV fluids until better tolerating p.o. intake * Hold HCTZ (5) Grief at loss of child: Code(s): F43.21 - Adjustment disorder with depressed mood; Z63.4 - Disappearance and of family member Status: Acute Assessment and Plan: Patient reports her son of oropharyngeal cancer 2 weeks ago. * Patient is grieving his loss. He lived in [place] and she did not make it in time to say her goodbyes. * She feels depressed related to this. 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 (6) Asthma: Qualifiers: Asthma severity: mild Asthma persistence: intermittent Asthma complication type: uncomplicated Qualified Code(s): J45.20 - Mild intermittent asthma, uncomplicated Code(s): J45.909 - Unspecified asthma, uncomplicated Status: Acute Assessment and Plan: Well controlled, no issues * Continue Advair inhaler and albuterol as needed (7) Hypertension: Qualifiers: Hypertension type: essential hypertension Qualified Code(s): I10 - Essential (primary) hypertension Code(s): I10 - Essential (primary) hypertension Status: Acute Assessment and Plan: Blood pressure reviewed and has been stable. Last BP 146/64 * Continue losartan * HCTZ on hold due to hyponatremia Subjective Date/time seen: 10/10/21 16:26 Interva
--- NOTE | 2021-10-10 16:26 | PM.IMPN ---
Progress Note: A&P Assessment and Plan (1) Nausea and vomiting: Code(s): R11.2 - Nausea with vomiting, unspecified Status: Acute Assessment and Plan: Resolved. Persistent nausea and vomiting x1 week prior to presentation Suspect secondary to acute, untreated UTI Antiemetics as needed She has been adequately rehydrated with IV fluids and is tolerating p.o. intake. Will discontinue IV fluids at this time Advance to bland diet. (2) Urinary tract infection: Code(s): N39.0 - Urinary tract infection, site not specified Status: Acute Assessment and Plan: Diagnosed with UTI on 10/05/2021 at ER visit Patient symptomatic with nausea, vomiting, urinary frequency, suprapubic discomfort Patient prescribed 5 days p.o. Macrobid, did not take any antibiotics due to nausea and vomiting. No culture obtained at that time Repeat UA on 10/09/21 is slightly abnormal. Urine culture is pending Patient with clinical signs of ascending urinary tract infection, however no findings on CT scan to support pyelonephritis Mild leukocytosis has resolved No fever. Continue IV ceftriaxone while awaiting urine culture (3) Abdominal pain: Code(s): R10.9 - Unspecified abdominal pain Status: Acute Assessment and Plan: Improving. Presented with stabbing left-sided abdominal and flank pain. CT of abdomen/pelvis with no acute intra-abdominal findings Patient does have remote history of nephrolithiasis. No findings on CT Suspect secondary to untreated UTI as above Continue IV antibiotics Analgesics available as needed (4) Acute hyponatremia: Code(s): E87.1 - Hypo-osmolality and hyponatremia Status: Acute Assessment and Plan: Suspect secondary to dehydration given nausea and vomiting Review of prior labs demonstrates chronic hyponatremia. Baseline around 132 Sodium on presentation was 125. Improved with IV hydration. Sodium is 129 today. Recheck this afternoon to evaluate sodium trend Patient is tolerating p.o. intake, therefore will discontinue IV fluids at this time and monitor sodium Continue with IV fluids until better tolerating p.o. intake Hold HCTZ (5) Grief at loss of child: Code(s): F43.21 - Adjustment disorder with depressed mood; Z63.4 - Disappearance and of family member Status: Acute Assessment and Plan: Patient reports her son of oropharyngeal cancer 2 weeks ago. Patient is grieving his loss. He lived in [place] and she did not make it in time to say her goodbyes. She feels depressed related to this. Continue home medication regimen Consultation to hospital commercial litigation attorney. (6) Asthma: Qualifiers: Asthma severity: mild Asthma persistence: intermittent Asthma complication type: uncomplicated Qualified Code(s): J45.20 - Mild intermittent asthma, uncomplicated Code(s): J45.909 - Unspecified asthma, uncomplicated Status: Acute Assessment and Plan: Well controlled, no issues Continue Advair inhaler and albuterol as needed (7) Hypertension: Qualifiers: Hypertension type: essential hypertension Qualified Code(s): I10 - Essential (primary) hypertension Code(s): I10 - Essential (primary) hypertension Status: Acute Assessment and Plan: Blood pressure reviewed and has been stable. Last BP 146/64 Continue losartan HCTZ on hold due to hyponatremia Subjective Date/time seen: 10/10/21 16:26 Interval history: Date of service: 10/10/2021 Claudette Gomez is a 71-year-old female with a history of asthma, hypertension, hyperlipidemia, anxiety, and arthritis who is seen in follow-up for abdominal pain, nausea, and vomiting. She is feeling much better today. She has not had any episodes of nausea, vomiting, or retching. She is tolerating full liquids. She denies fevers or chills. She still endorses some discomfort in her left flank but st
[2021-10-10 17:48] LABS: Sodium 133 mmol/L (137-145)
[2021-10-10] MEDS: ACETAMINOPHEN 325 MG TABLET 650 MG PO (20:23)
[2021-10-10 21:07] VITALS: O2SAT 98
[2021-10-11] VITALS: PULSE 74; RESP 16; TEMP 36.8; O2SAT 98
[2021-10-11] MEDS: HYDROcodone/acetaminophen (*CRX) 5-325 MG TABLET 1 TAB PO ×4 (05:00→23:08)
[2021-10-11 05:47] LABS: Hematocrit 30.5 % (37.0-47.0); Mean Corpuscular HGB Conc 29.5 g/dl (32-36); Mean Corpuscular Hemoglobin 22.5 pg (26-34); Mean Corpuscular Volume 76.3 fl (80-100); Mean Platelet Volume 8.6 fl (7.4-10.4); Platelet Count Result 306 k/mm3 (150-375); Red Cell Distribution Width 17.1 % (11.5-14.5)
[2021-10-11 05:48] VITALS: BP 147/74; PULSE 70; RESP 16; TEMP 37.1; O2SAT 100
[2021-10-11 06:06] LABS: Anion Gap 10 mmol/L (8-16); Blood Urea Nitrogen 10 mg/dL (7-17); Calcium 8.5 mg/dL (8.4-10.2); Carbon Dioxide 21 mmol/L (22-30); Chloride 102 mmol/L (98-107); Estimated CRCL calculation 45 ml/min; Estimated Glomerular Filt Rate 49; Glucose 128 mg/dL (65-110); Potassium 3.6 mmol/L (3.4-5.0); Sodium 133 mmol/L (137-145)
[2021-10-11] MEDS: ONDANSETRON INJ 4 MG/2 ML VIAL IV PUSH ×3 (06:27→20:05)
[2021-10-11] MEDS: MONTELUKAST SODIUM 10 MG TABLET PO (08:34)
[2021-10-11] MEDS: PANTOPRAZOLE 40 MG TABLET BY MOUTH (08:34)
[2021-10-11] MEDS: buPROPion HCL XL (24 HR) 150 MG TABCR 300 MG PO (08:34)
[2021-10-11] MEDS: ENOXAPARIN 40 MG/0.4 ML SYRINGE SUB-Q (08:34)
[2021-10-11] MEDS: LOSARTAN POTASSIUM 100 MG TABLET PO (08:34)
[2021-10-11] MEDS: hydrOXYzine HCL 25 MG TABLET 50 MG PO ×3 (08:38→20:05)
[2021-10-11] MEDS: FLUTICASONE/SALMETEROL 115-21 MCG INHALER 1 PUFF 2 PUFF INHALATION ×2 (09:13→20:29)
[2021-10-11 09:14] VITALS: O2SAT 94
--- NOTE | 2021-10-11 10:52 | P.PNIM_ITS ---
Progress Note: A&P Assessment and Plan (1) Nausea and vomiting: Code(s): R11.2 - Nausea with vomiting, unspecified Status: Resolved Assessment and Plan: Resolved. Persistent nausea and vomiting x1 week prior to presentation * Suspect secondary to acute, untreated UTI * Antiemetics as needed * She was adequately rehydrated with IV fluids and is tolerating p.o. intake. * Tolerating bland diet (2) Urinary tract infection: Code(s): N39.0 - Urinary tract infection, site not specified Status: Acute Assessment and Plan: Diagnosed with UTI on 10/05/2021 at ER visit Patient symptomatic with nausea, vomiting, urinary frequency, suprapubic discomfort * Patient prescribed 5 days p.o. Macrobid, did not take any antibiotics due to nausea and vomiting. No culture obtained at that time * Patient with clinical signs of ascending urinary tract infection, however no findings on CT scan to support pyelonephritis * Repeat UA on 10/09/21 is slightly abnormal. * Urine culture is pending. Spoke with [facility] via phone and reports identification of E. coli and Morganella morganii. Expect final results and susceptibility to be posted tomorrow. * Mild leukocytosis has resolved Afebrile. * Continue IV ceftriaxone while awaiting urine culture * Will plan for a total of 10 days of treatment given complicated UTI. (3) Abdominal pain: Code(s): R10.9 - Unspecified abdominal pain Status: Acute Assessment and Plan: Presented with stabbing left-sided abdominal and flank pain * CT of abdomen/pelvis with no acute intra-abdominal findings * Patient does have remote history of nephrolithiasis. No findings on CT * Suspect secondary to untreated UTI as above * Continue IV antibiotics * Analgesics available as needed * Pain had improved and now pt states worsened today and does not feel that she can manage at home. Will continue with treatment for acute infection and monitor for overall improvement. If pain persists, may need to consider repeat CT of the abdomen vs GI evaluation. (4) Acute hyponatremia: Code(s): E87.1 - Hypo-osmolality and hyponatremia Status: Acute Assessment and Plan: Suspect secondary to dehydration given nausea and vomiting * Review of prior labs demonstrates chronic hyponatremia. Baseline around 132 * Sodium on presentation was 125. * Improved at appropriate rate with IV hydration. * Sodium 133 today * Hold HCTZ (5) Asthma: Qualifiers: Asthma severity: mild Asthma persistence: intermittent Asthma compl ication type: uncomplicated Qualified Code(s): J45.20 - Mild intermittent asthma, uncomplicated Code(s): J45.909 - Unspecified asthma, uncomplicated Status: Acute Assessment and Plan: Well controlled, no issues * Continue Advair inhaler and albuterol as needed (6) Hypertension: Qualifiers: Hypertension type: essential hypertension Qualified Code(s): I10 - Essential (primary) hypertension Code(s): I10 - Essential (primary) hypertension Status: Acute Assessment and Plan: Blood pressure reviewed and has been stable. Last BP 147/74 * Continue losartan * HCTZ on hold due to hyponatremia (7) Grief at loss of child: Code(s): F43.21 - Adjustment disorder with depressed mood; Z63.4 - Disappearance and of family member Status: Acute Assessment and Plan: Patient reports her son of oropharyngeal cancer 2 weeks ago. * Patient is grieving his loss. He lived in [place] and she did not ma
--- NOTE | 2021-10-11 10:52 | PM.IMPN ---
Progress Note: A&P Assessment and Plan (1) Nausea and vomiting: Code(s): R11.2 - Nausea with vomiting, unspecified Status: Resolved Assessment and Plan: Resolved. Persistent nausea and vomiting x1 week prior to presentation Suspect secondary to acute, untreated UTI Antiemetics as needed She was adequately rehydrated with IV fluids and is tolerating p.o. intake. Tolerating bland diet (2) Urinary tract infection: Code(s): N39.0 - Urinary tract infection, site not specified Status: Acute Assessment and Plan: Diagnosed with UTI on 10/05/2021 at ER visit Patient symptomatic with nausea, vomiting, urinary frequency, suprapubic discomfort Patient prescribed 5 days p.o. Macrobid, did not take any antibiotics due to nausea and vomiting. No culture obtained at that time Patient with clinical signs of ascending urinary tract infection, however no findings on CT scan to support pyelonephritis Repeat UA on 10/09/21 is slightly abnormal. Urine culture is pending. Spoke with [employer] via phone and reports identification of E. coli and Morganella morganii. Expect final results and susceptibility to be posted tomorrow. Mild leukocytosis has resolved Afebrile. Continue IV ceftriaxone while awaiting urine culture Will plan for a total of 10 days of treatment given complicated UTI. (3) Abdominal pain: Code(s): R10.9 - Unspecified abdominal pain Status: Acute Assessment and Plan: Presented with stabbing left-sided abdominal and flank pain CT of abdomen/pelvis with no acute intra-abdominal findings Patient does have remote history of nephrolithiasis. No findings on CT Suspect secondary to untreated UTI as above Continue IV antibiotics Analgesics available as needed Pain had improved and now pt states worsened today and does not feel that she can manage at home. Will continue with treatment for acute infection and monitor for overall improvement. If pain persists, may need to consider repeat CT of the abdomen vs GI evaluation. (4) Acute hyponatremia: Code(s): E87.1 - Hypo-osmolality and hyponatremia Status: Acute Assessment and Plan: Suspect secondary to dehydration given nausea and vomiting Review of prior labs demonstrates chronic hyponatremia. Baseline around 132 Sodium on presentation was 125. Improved at appropriate rate with IV hydration. Sodium 133 today Hold HCTZ (5) Asthma: Qualifiers: Asthma severity: mild Asthma persistence: intermittent Asthma complication type: uncomplicated Qualified Code(s): J45.20 - Mild intermittent asthma, uncomplicated Code(s): J45.909 - Unspecified asthma, uncomplicated Status: Acute Assessment and Plan: Well controlled, no issues Continue Advair inhaler and albuterol as needed (6) Hypertension: Qualifiers: Hypertension type: essential hypertension Qualified Code(s): I10 - Essential (primary) hypertension Code(s): I10 - Essential (primary) hypertension Status: Acute Assessment and Plan: Blood pressure reviewed and has been stable. Last BP 147/74 Continue losartan HCTZ on hold due to hyponatremia (7) Grief at loss of child: Code(s): F43.21 - Adjustment disorder with depressed mood; Z63.4 - Disappearance and of family member Status: Acute Assessment and Plan: Patient reports her son of oropharyngeal cancer 2 weeks ago. Patient is grieving his loss. He lived in [place] and she did not make it in time to say her goodbyes. She feels depressed related to this. Continue home medication regimen Consultation to hospital foreign legal consultant. Subjective Date/time seen: 10/11/21 10:52 Interval history: Date of service: 10/11/2021 Claudette Gomez is a 71-year-old female with a history of asthma, hypertension, hyperlipidemia, anxiety, and arthritis who is seen in follow-up for abdominal pain, nause
--- NOTE | 2021-10-11 11:54 | PC.NURSE ---
Two attempts made by this nurse to get IV access that were unsuccessful. Second nurse attempted with no luck. Call made to [facility] in IV access to start a line. Patient calling out and moving while attempting IV. Patient continues to ask for multiple medication orders.
[2021-10-11 14:45] VITALS: BP 140/58; PULSE 77; RESP 18; TEMP 36.8; O2SAT 96
[2021-10-11] MEDS: MELATONIN 3 MG TABLET 6 MG PO (20:05)
[2021-10-11 20:34] VITALS: O2SAT 95
[2021-10-11 21:28] VITALS: BP 148/53; PULSE 79; RESP 16; TEMP 36.7; O2SAT 100
[2021-10-12] MEDS: ONDANSETRON INJ 4 MG/2 ML VIAL IV PUSH (00:45)
--- NOTE | 2021-10-12 01:44 | PC.NURSE ---
Patient repeatedly disregarding safety precautions. She acknowledges need for call light for her safety regarding transfers and yet will not use the call light for this purpose. She does, however, use the call light for repeated anxious complaints, additionally has intentionally set off the bed alarm to get people into the room for requests. Currently requesting lunesta for help sleeping. Patient has had melatonin and hydroxyzine for this purpose. MD contacted, awaiting call back.
[2021-10-12] MEDS: HYDROcodone/acetaminophen (*CRX) 5-325 MG TABLET 1 TAB PO (05:22)
[2021-10-12 06:00] VITALS: BP 152/68; PULSE 71; RESP 16; TEMP 36.9; O2SAT 98
--- NOTE | 2021-10-12 07:40 | ECG_ITS ---
Measurements Intervals [place] Rate: 75 P: 29 [place]: 132 QRS: 5 QRSD: 103 T: 60 QT: 337 QTc: 378 Interpretive Statements SINUS RHYTHM NONSPECIFIC ST & T-WAVE ABNORMALITY NO PREVIOUS ECG AVAILABLE FOR COMPARISON Electronically Signed On 10-12-2021 18:18:13 CDT by Meryl Doherty M.D.
[2021-10-12] MEDS: FLUTICASONE/SALMETEROL 115-21 MCG INHALER 1 PUFF 2 PUFF INHALATION (07:47)
[2021-10-12 07:48] VITALS: O2SAT 98
[2021-10-12] MEDS: buPROPion HCL XL (24 HR) 150 MG TABCR 300 MG PO (08:04)
[2021-10-12] MEDS: MONTELUKAST SODIUM 10 MG TABLET PO (08:04)
[2021-10-12] MEDS: ENOXAPARIN 40 MG/0.4 ML SYRINGE SUB-Q (08:04)
[2021-10-12] MEDS: LOSARTAN POTASSIUM 100 MG TABLET PO (08:04)
[2021-10-12] MEDS: PANTOPRAZOLE 40 MG TABLET BY MOUTH (08:04)
[2021-10-12] MEDS: hydrOXYzine HCL 25 MG TABLET 50 MG PO (08:06)
--- NOTE | 2021-10-12 10:37 | P.DS_ITS ---
DS: Admitting Diagnosis Discharge Date 10/12/2021 1037 Admitting Diagnosis Urinary tract infection Nausea and vomiting DS: Discharge Diagnosis Discharge Diagnosis (1) Nausea and vomiting: Code(s): R11.2 - Nausea with vomiting, unspecified Status: Resolved Assessment and Plan: Resolved. Persistent nausea and vomiting x1 week prior to presentation * Suspect secondary to acute, untreated UTI * Antiemetics as needed- treated with IV zofran and PO phenergan PRN with improvement. * She was adequately rehydrated with IV fluids and saline locked when tolerating p.o. intake. * Patient continued tolerating bland diet at discharge. (2) Urinary tract infection: Code(s): N39.0 - Urinary tract infection, site not specified Status: Acute Assessment and Plan: Diagnosed with UTI on 10/05/2021 at ER visit Patient symptomatic with nausea, vomiting, urinary frequency, suprapubic discomfort * Patient prescribed 5 days p.o. Macrobid, did not take any antibiotics due to nausea and vomiting. No culture obtained at that time * Patient with clinical signs of ascending urinary tract infection, however no findings on CT scan to support pyelonephritis * Repeat UA on 10/09/21 is slightly abnormal. * Urine culture positive for E. coli and Morganella morganii with varying resistance patterns, although both sensitive to ciprofloxacin. * Mild leukocytosis has resolved Afebrile. * Patient received 3 days IV 1 gram ceftriaxone Q24 hours, then transitioned to oral ciprofloxacin 500 mg PO BID x 4 days for total 7-day abx course sufficient for complicated UTI coverage. * No suprapubic or CVA tenderness at discharge. Denied dysuria. (3) Abdominal pain: Code(s): R10.9 - Unspecified abdominal pain Status: Acute Assessment and Plan: Presented with stabbing left-sided abdominal and flank pain * CT of abdomen/pelvis with no acute intra-abdominal findings * Patient does have remote history of nephrolithiasis. No findings on CT * Suspect secondary to untreated UTI as above * Continue IV antibiotics * Analgesics available as needed * Pain resolved on the day of discharge. She was tolerating diet without N/V. Patient reported loose stool x1 and was counseled on eating yogurt with antibiotics. (4) Acute hyponatremia: Code(s): E87.1 - Hypo-osmolality and hyponatremia Status: Acute Assessment and Plan: Suspect secondary to dehydration given nausea and vomiting * Review of prior labs demonstrates chronic hyponatremia. Baseline around 132 * Sodium on presentation was 125. * Improved at appropriate rate with IV hydration. * Resolved. Resumed on home dose HCTZ (5) Asthma: Qualifiers: Asthma complication type: uncomplicated Asthma persistence: intermittent Asthma severity: mild Qualified Code(s): J45.20 - Mild intermittent asthma, uncomplicated Code(s): J45.909 - Unspecified asthma, uncomplicated Status: Acute Assessment and Plan: Well controlled, no in acute exacerbation. * Continue Advair inhaler and albuterol as needed (6) Hypertension: Qualifiers: Hypertension type: essential hypertension Qualified Code(s): I10 - Essential (primary) hypertension Code(s): I10 - Essential (primary) hypertension Status: Acute Assessment and Plan: Blood pressure reviewed and has been stable. * Continue losartan * HCTZ resumed at discharge. (7) Grief at loss of child: Code(s): F43.21 - Adjustment disorder w
--- NOTE | 2021-10-12 10:37 | PM.DS ---
DS: Admitting Diagnosis Discharge Date 10/12/2021 1037 Admitting Diagnosis Urinary tract infection Nausea and vomiting DS: Discharge Diagnosis Discharge Diagnosis (1) Nausea and vomiting: Code(s): R11.2 - Nausea with vomiting, unspecified Status: Resolved Assessment and Plan: Resolved. Persistent nausea and vomiting x1 week prior to presentation Suspect secondary to acute, untreated UTI Antiemetics as needed- treated with IV zofran and PO phenergan PRN with improvement. She was adequately rehydrated with IV fluids and saline locked when tolerating p.o. intake. Patient continued tolerating bland diet at discharge. (2) Urinary tract infection: Code(s): N39.0 - Urinary tract infection, site not specified Status: Acute Assessment and Plan: Diagnosed with UTI on 10/05/2021 at ER visit Patient symptomatic with nausea, vomiting, urinary frequency, suprapubic discomfort Patient prescribed 5 days p.o. Macrobid, did not take any antibiotics due to nausea and vomiting. No culture obtained at that time Patient with clinical signs of ascending urinary tract infection, however no findings on CT scan to support pyelonephritis Repeat UA on 10/09/21 is slightly abnormal. Urine culture positive for E. coli and Morganella morganii with varying resistance patterns, although both sensitive to ciprofloxacin. Mild leukocytosis has resolved Afebrile. Patient received 3 days IV 1 gram ceftriaxone Q24 hours, then transitioned to oral ciprofloxacin 500 mg PO BID x 4 days for total 7-day abx course sufficient for complicated UTI coverage. No suprapubic or CVA tenderness at discharge. Denied dysuria. (3) Abdominal pain: Code(s): R10.9 - Unspecified abdominal pain Status: Acute Assessment and Plan: Presented with stabbing left-sided abdominal and flank pain CT of abdomen/pelvis with no acute intra-abdominal findings Patient does have remote history of nephrolithiasis. No findings on CT Suspect secondary to untreated UTI as above Continue IV antibiotics Analgesics available as needed Pain resolved on the day of discharge. She was tolerating diet without N/V. Patient reported loose stool x1 and was counseled on eating yogurt with antibiotics. (4) Acute hyponatremia: Code(s): E87.1 - Hypo-osmolality and hyponatremia Status: Acute Assessment and Plan: Suspect secondary to dehydration given nausea and vomiting Review of prior labs demonstrates chronic hyponatremia. Baseline around 132 Sodium on presentation was 125. Improved at appropriate rate with IV hydration. Resolved. Resumed on home dose HCTZ (5) Asthma: Qualifiers: Asthma complication type: uncomplicated Asthma persistence: intermittent Asthma severity: mild Qualified Code(s): J45.20 - Mild intermittent asthma, uncomplicated Code(s): J45.909 - Unspecified asthma, uncomplicated Status: Acute Assessment and Plan: Well controlled, no in acute exacerbation. Continue Advair inhaler and albuterol as needed (6) Hypertension: Qualifiers: Hypertension type: essential hypertension Qualified Code(s): I10 - Essential (primary) hypertension Code(s): I10 - Essential (primary) hypertension Status: Acute Assessment and Plan: Blood pressure reviewed and has been stable. Continue losartan HCTZ resumed at discharge. (7) Grief at loss of child: Code(s): F43.21 - Adjustment disorder with depressed mood; Z63.4 - Disappearance and of family member Status: Acute Assessment and Plan: Patient reports her son of oropharyngeal cancer 2 weeks ago. Patient is grieving his loss. He lived in [place] and she did not make it in time to say her goodbyes. She feels depressed related to this. Continue home medication regimen Consultation to hospital grocery store manager. No suicidal ideation (8) Chronic, con
== END 2021-10-12 11:30 | disposition home health service (06) | DRG 690 ==
LOC: ANHED 09:40 → ANH3MED 10:03
PROVIDERS: Emergency Medicine; Physician Assistant; Admitting Provider Student in an Organized Health Care Education/Training Program; Emergency Provider Emergency Medicine; PCP Physician Assistant; Visit Provider Nurse Practitioner Family
DX: N39.0 Urinary tract infection, site not specified (principal); E87.1 Hypo-osmolality and hyponatremia; I10 Essential (primary) hypertension; J45.909 Unspecified asthma, uncomplicated; E78.5 Hyperlipidemia, unspecified; E55.9 Vitamin D deficiency, unspecified; K21.9 Gastro-esophageal reflux disease without esophagitis; M25.569 Pain in unspecified knee; G89.29 Other chronic pain; F41.9 Anxiety disorder, unspecified; F43.21 Adjustment disorder with depressed mood; B96.20 Unspecified Escherichia coli [E. coli] as the cause of diseases classified elsewhere; B96.89 Other specified bacterial agents as the cause of diseases classified elsewhere; Z20.822 Contact with and (suspected) exposure to COVID-19; Z90.49 Acquired absence of other specified parts of digestive tract; Z63.4 Disappearance and death of family member; Z79.891 Long term (current) use of opiate analgesic
CPT/HCPCS: 36415; 74176; 80048; 80053; 81001; 83605; 83690; 84295; 85025; 85027; 87077; 87086; 87186; 93005; 94640; 96361; 96365; 96375; 96376; 99285; A9270; C9803; G0378; J0131; J0696; J1170; J1200; J1650; J2405; J2765; J7030; U0003; U0005